=== PATIENT | female | born 1995 | race Caucasian/White ===

== ENCOUNTER 2017-11-04 01:21 | Emergency (ER) | payer OTHER ==
[~2017-11-04] VITALS: Ht 162.6 cm; Wt 90.0 kg
[~2017-11-04 01:21] MED LIST: CLR10 PO; DEXT1LIQ80 PO
[2017-11-04] MEDS ORDERED: IBUPROFEN 600 MG TAB PO STA (01:32)
[2017-11-04] MEDS ORDERED: LIDOCAINE/EPINEPHRINE 1% 20 ML VIAL INFIL STA (01:32)
[2017-11-04] MEDS ORDERED: CEPHALEXIN MONOHYDRATE 250 MG CAP PO STA (01:32)
[2017-11-04] MEDS ORDERED: SULFAMETHOXAZOLE/TRIMETHOPRIM DS 800/160MG TAB PO STA (01:32)
[2017-11-04] MEDS ORDERED: SEPTRA DS HOME PACK 1 EA VIAL PO STA (01:32)
[2017-11-04] MEDS ORDERED: PERCOCET HOME PACK PO STA (01:32)
[2017-11-04 01:34] VITALS: TEMP 37.2; Ht 162.6 cm; Wt 90.0 kg
[2017-11-04] MEDS ORDERED: OXYCODONE/ACETAMINOPHEN 5-325 TAB PO ONE (01:45)
[2017-11-04] MEDS ORDERED: CEPHALEXIN 500MG HOME PACK 1 EA BTL PO ONE (01:45)
[2017-11-04] MEDS ORDERED: CEPH500C PO (02:22)
[2017-11-04] MEDS ORDERED: SULF800T23 PO (02:22)
[2017-11-04] MEDS ORDERED: OXYC-57 PO (02:22)
[2017-11-04 02:45] VITALS: BP 112/94; PULSE 98; O2SAT 96
--- NOTE | 2017-11-04 02:50 | EMERGENCY ROOM VISIT NOTE ---
History Report prepared by [place]: Janee Dang Under the Supervision of: Dr. Kiel Browne M.D. First contact with patient: 01:28 Chief Complaint: OTHER COMPLAINT Stated Complaint: REDNESS, BUMP THAT IS TENDER History of Present Illness The patient is a 22 year old female who presents to the Emergency Room with complaints of an episode of a bump on her right breast starting a few days ago. The patient states that it is very sore. She currently rates her pain as a 10/ 10 in severity. She complains that it is red and warm. The patient denies spending time in the hamm, having dogs, breast feeding, and noticing a tick. Source of History: patient Onset: a few days ago Position: other (right breast) Symptom Intensity: 10/10 Quality: other (sore) Timing: other (episode) Note: The patient complains of it being warm and red. The patient denies spending time in the hamm, having dogs, breast feeding, and noticing a tick. Review of Systems See HPI for pertinent positives & negatives. A total of 10 systems reviewed and were otherwise negative. Past Medical & Surgical Medical Problems: (1) Bladder infection (2) Panic disorder (3) Skin problems Surgical Problems: (1) History of tonsilloadenoidectomy Family History No pertinent family history Social History Smoking Status: Never Smoker Alcohol Use: none Marital Status: single Housing Status: lives with family Occupation Status: student Current/Historical Medications Scheduled Cephalexin Monohydrate (Keflex), 1 CAP PO QID Loratadine (Claritin), 10 MG PO DAILY Sulfa/Trimethoprim (Bactrim Ds 800MG/160MG), 1 TAB PO BID Scheduled PRN Dextromethorphan Polistirex (Cough Dm), 2 TSP PO BID PRN for Cough Oxycodone/Acetaminophen 5MG/325MG (Percocet 5MG/325MG), 1-2 TAB PO Q4H PRN for Pain Allergies Coded Allergies: No Known Allergies (Unverified , 10/03/15) Physical Exam Vital Signs Date Time Temp Pulse Resp B/P (MAP) Pulse Ox O2 Delivery O2 Flow Rate FiO2 11/04/17 02:45 98 18 112/94 96 11/04/17 01:34 37.2 98 18 115/86 98 Room Air Physical Exam GENERAL: Awake, alert, well-appearing, in no acute distress HENT: Normocephalic, atraumatic. Oropharynx unremarkable. EYES: Normal conjunctiva. Sclera non-icteric. NECK: Supple. No nuchal rigidity. FROM. No JVD. RESPIRATORY: Clear to auscultation. CARDIAC: Regular rate, normal rhythm. Extremities warm and well perfused. Pulses equal. ABDOMEN: Soft, non-distended. No tenderness to palpation. No rebound or guarding. No masses. RECTAL: Deferred. MUSCULOSKELETAL: Chest examination reveals no tenderness. The back is symmetrical on inspection without obvious abnormality. There is no CVA tenderness to palpation. No joint edema. LOWER EXTREMITIES: Calves are equal size bilaterally and non-tender. No edema. No discoloration. NEURO: Normal sensorium. No sensory or motor deficits noted. SKIN: No rash or jaundice noted. Quarter sized area of fluctuance to her right breast area. Medical Decision & Procedures Medications Administered Medications (Trade) Dose Ordered Sig/Alivia Route Start Time Stop Time Status Last Admin Dose Admin Lidocaine/ Epinephrine (Xylocaine/Epine 1% Inj) 20 ml ONE STAT INFIL 11/04/17 01:32 11/04/17 01:35 DC 11/04/17 01:56 20 ML Oxycodone/ Acetaminophen (Percocet 5-325mg Tab) 2 tab NOW ONCE PO 11/04/17 01:45 11/04/17 01:46 DC 11/04/17 01:59 2 TAB Ibuprofen (Motrin Tab) 600 mg NOW STAT PO 11/04/17 01:32 11/04/17 01:35 DC 11/04/17 01:57 600 MG Cephalexin Monohydrate (Keflex Cap) 500 mg NOW STAT PO 11/04/17 01:32 11/04/17 01:36 DC 11/04/17 01:57 500 MG Trimethoprim/ Sulfamethoxazole (Sulfameth/ Trimeth Ds 800/ 160MG Home Pack) 1 homepack UD STAT PO 11/04/17 01:32 11/04/17 01:36 DC 11/04/17 02:39 1 HOMEPACK Trimethoprim/ Sulfamethoxazole (Septra Ds 800/ 160MG Tab) 1 tab NOW STAT PO 11/04/17 01:32 11/04/17 01:36 DC 11/04/17 01:59 1 TAB Cephalexin Monohydrate (Keflex 500MG Home Pack) 1 homepack NOW ONCE PO 11/04/17 01:45 11/04/17 01:46 DC 11/04/17 02:39 1 HOMEPACK Oxycodone/ Acetaminophen (Percocet 5/ 325MG Home Pack) 1 homepack UD STAT PO 11/04/17 01:32 11/04/17 01:36 DC 11/04/17 02:39 1 HOMEPACK Procedure Incision & Drainage Indication: Abscess. Location: Right sternal area Verbal consent was obtained after the risks and benefits were explained, including but not limited to bleeding, scarring, infection, pain, and bone/joint /nerve damage. At this time, the risks of the procedure are less than the risks of NOT performing the procedure. A time out was taken and the correct patient and site identified. The skin was prepped with betadine and a sterile field set. The wound was anesthetized with 2 ml of 1% lidocaine without epinephrine. The abscess cavity was entered with a number 11 blade and puss material expressed. Detailed wound care instructions and signs and symptoms of worsening infection reviewed with the patient. No complications and the patient tolerated the procedure well. ED Course 0130: Past medical records reviewed. The patient was evaluated in room A2. A complete history and physical examination was performed. 0132: Ordered Oxycodone/Acetaminophen 1 homepack PO, Trimethoprim/ Sulfamethoxazole 1 tab PO, Trimethoprim/Sulfamethoxazole 1 homepack PO, Keflex Cap 500 mg PO, Motrin Tab 600 mg PO, Lidocaine/Epinephrine 20 ml INFIL. 0145: Ordered Cephalexin Monohydrate 1 homepack PO, Oxycodone/Acetaminophen 2 tab PO. 0209: I reevaluated the patient and drained her abscess at this time. I discussed results and treatment plan with the patient. She verbalizes agreement and understanding. The patient is ready for discharge. Medical Decision This is a 22-year-old female who presents the emergency department complaining of abscess near the margin of her right breast. This area was anesthetized and using a needle aspiration a large amount of pus was expressed. Patient was started on antibiotics including Keflex and Bactrim pending culture results. I do feel the patient is well enough to be discharged home for follow-up with a primary care physician. Patient was in agreement with the treatment plan. Medication Reconcilliation Current Medication List: was personally reviewed by me Blood Pressure Screening Patient's blood pressure: Normal blood pressure Blood pressure disposition: Did not require urgent referral Impression Primary Impression: Abscess Scribe Attestation The scribe's documentation has been prepared under my direction and personally reviewed by me in its entirety. I confirm that the note above accurately reflects all work, treatment, procedures, and medical decision making performed by me. Departure Information Dispostion Home / Self-Care Prescriptions Oxycodone/Acetaminophen 5MG/325MG (PERCOCET 5MG/325MG) Tab 1-2 TAB PO Q4H Y for Pain, #14 TAB Prov: Kiel Browne MD 11/04/17 Sulfa/Trimethoprim (Bactrim Ds 800MG/160MG) Tab 1 TAB PO BID for 10 Days, #20 TAB Prov: Kiel Browne MD 11/04/17 Cephalexin Monohydrate (Keflex) 500 Mg Cap 1 CAP PO QID for 10 Days, #40 CAP Prov: Kiel Browne MD 11/04/17 Referrals Medhat Smith M.D. (PCP) Forms HOME CARE DOCUMENTATION FORM, IMPORTANT VISIT INFORMATION, WORK / SCHOOL INSTRUCTIONS Patient Instructions My [facility] Additional Instructions You received narcotic or benzodiazepene medication while in the emergency room today. This is an addictive medication that may cause drowziness as well as constipation. Do not drive, operate heavy machinery, or drink alcohol under the influence of this medication. Take 600 mg Ibuprofen every 6 hours Take Percocet for breakthrough pain You have been examined and treated today on an emergency basis only. This is not a substitute for, or an effort to provide, complete comprehensive medical care. It is impossible to recognize and treat all injuries or illnesses in a single emergency department visit. It is therefore important that you follow up closely with Dr Smith. Call as soon as possible for an appointment. Thank you for your time and consideration. I look forward to speaking with you again soon. Please don't hesitate to call us if you have any questions.
== END 2017-11-04 02:45 | disposition home or self-care (01) ==
LOC: C.EDA 01:22
DX: N61.1 Abscess of the breast and nipple (principal)

== ENCOUNTER 2020-05-27 04:15 | Inpatient (IN) ==
[2020-05-27] MEDS ORDERED: LORazepam 2 MG/ML VIAL (IM USE) ONE (04:22)
[2020-05-27] MEDS ORDERED: LORazepam 1 ML IM STA (04:22)
[2020-05-27] MEDS ORDERED: LORazepam 2 MG/ML VIAL (IM USE) IM STA (04:29)
[2020-05-27] MEDS ORDERED: SODIUM CHLORIDE 0.9% 1000ML 1,000 ML IV SCH (04:30)
[2020-05-27] MEDS: LORazepam 2 MG/4 ML VIAL IV PRN ×6 (04:53→13:37)
[2020-05-27 05:00] LABS: Appearance Urine Cloudy (Clear); Bacteria Urine Automated 3+ (Negative); Bilirubin Urine Negative (Negative); Blood Urine 2+ (Negative); Color Urine Yellow; Epithelial Cell Urine Auto >30 /lpf (0-5); Glucose Urine UA Negative (Negative); Ketones Urine Negative (Negative); Leukocyte Esterase Urine 1+ (Negative); Nitrite Urine Positive (Negative); Protein Urine Negative (Negative); RBC Urine Automated 0-4 /hpf (0-4); Specific Gravity Urine 1.015 (1.000-1.030); Urobilinogen Urine Negative (Negative)
[2020-05-27 05:10] LABS: Pregnancy Test, Urine Negative (Negative)
[2020-05-27 05:20] LABS: Basophils # (auto) 0.03 K/uL (0-0.2); Basophils % (auto) 0.2 %; Eosinophils % (auto) 0.7 %; Hematocrit (blood only) 46.1 % (37-47); Hemoglobin 15.9 g/dL (12.0-16.0); Immature Granulocytes # (auto) 0.03 K/uL (0.00-0.02); Immature Granulocytes % (auto) 0.2 %; Lymphocytes # (auto) 1.82 K/uL (1.2-3.4); Lymphocytes % (auto) 11.9 %; Mean Corpuscular Hgb Conc 34.5 g/dL (32-36); Mean Corpuscular Volume 89.9 fL (80-100); Mean Platelet Volume 9.6 fL (7.4-10.4); Monocytes # (auto) 0.66 K/uL (0.11-0.59); Monocytes % (auto) 4.3 %; Neutrophils # (auto) 12.69 K/uL (1.4-6.5); Neutrophils % (auto) 82.7 %; Platelet Count 256 K/uL (130-400); RDW Coefficient of Variation 12.9 % (11.5-14.5); RDW Standard Deviation 42.3 fL (36.4-46.3); Red Blood Count 5.13 M/uL (4.2-5.4); White Blood Count 15.33 K/uL (4.8-10.8)
[2020-05-27 05:30] LABS: Amphetamines+Metham, Urine Neg (Neg); Barbiturates, Urine Neg (Neg); Benzodiazepine, Urine Neg (Neg); Cocaine, Urine Neg (Neg); MDMA (Ecstacy), Urine Neg (Neg); Methadone, Urine Neg (Neg); Opiate, Urine Neg (Neg); Phencyclidine, Urine Neg (Neg)
[2020-05-27 05:52] LABS: Alanine Aminotransferase 18 U/L (12-78); Albumin Level 3.8 gm/dl (3.4-5.0); Aspartate Aminotransferase 12 U/L (15-37); BUN Creatinine Ratio 14.1 (10-20); Blood Urea Nitrogen 16 mg/dl (7-18); Calcium 8.4 mg/dl (8.5-10.1); Carbon Dioxide 21 mmol/L (21-32); Chloride 110 mmol/L (98-107); Creatinine Clr Calc Pharmacy 90.1 ml/min; Est GFR (African American) 80.2; Est GFR (Non-African American) 69.2; Glucose 86 mg/dl (70-99); Potassium 3.1 mmol/L (3.5-5.1); Sodium 139 mmol/L (136-145)
[2020-05-27 05:57] LABS: Alkaline Phosphatase 72 U/L (45-117); Bilirubin,Total 0.3 mg/dl (0.2-1); Creatine Kinase 163 U/L (26-192); Globulin 3.8 gm/dl (2.5-4.0); Total Protein 7.6 gm/dl (6.4-8.2); Troponin I < 0.015 ng/ml (0-0.045)
--- NOTE | 2020-05-27 06:10 | Emergency Department Note ---
History of Present Illness General Chief complaint: Overdose (Accidental) Stated complaint: OVERDOSE Time Seen by Provider: 05/27/20 04:18 History of Present Illness Maximum Pain Intensity: 0 This is a 24-year-old female presenting to the emergency department via EMS for evaluation of methamphetamine overdose. The patient was evidently smoking methamphetamines tonight, and became very atypical. She lives at home with her parents, who called 911. Police and EMS did arrive on scene. They did find a methamphetamine pipe in the patient's bedroom, as well as a small knife on the patient's person. The patient was acting atypical and brought to the ER for evaluation. On presentation the patient is minimally redirectable. She is trying to get out of the bed and does not answer all questions appropriately. Review of the EMR shows the patient has had overdose events in the past. Much of the history is provided by EMS and police. Home Medications Home Medications Medication Instructions Recorded Confirmed Type albuterol sulfate [Ventolin HFA] 2 puff INHALATION QID PRN 05/27/20 05/27/20 History diclofenac sodium 50 mg PO BID PRN 05/27/20 05/27/20 History hydroxyzine pamoate 25 - 50 mg PO HS PRN 05/27/20 05/27/20 History mometasone-formoterol [Dulera] 2 puff INHALATION BID 05/27/20 05/27/20 History montelukast [Singulair] 10 mg PO HS 05/27/20 05/27/20 History Allergies Allergy/AdvReac Type Severity Reaction Status Date / Time cat dander Allergy Intermediate HIVES-SWELLING Verified 09/09/19 17:17 ITCHY WATERY EYES grass pollen Allergy Intermediate HIVES--SWELLING Verified 09/09/19 17:17 ITCHY WATERY EYES pollen extracts Allergy Intermediate HIVES--SWELLING Verified 09/09/19 17:17 ITCHY WATERY EYES. Past Med/Surg History Medical History Asthma Insomnia Marijuana use No acute medical problems ANDREY (obstructive sleep apnea) Surgical History History of tonsillectomy and adenoidectomy Family History Other Family history non-contributory Social History (Updated 05/27/20 @ 18:01 by Sumaya Phelps PA-C) Smoking Status: Current every day smoker Cigarettes Per Day: 5; Second Hand Exposure: No; Do You Dip or Chew Tobacco: No; Tobacco Cessation Education Requested by Patient: No Hx Alcohol Use: No Hx Substance Use: Yes Last Used Substance: Unknown Substance Use Type Other:: pipe found Preferred Language: Luxembourgish Communication Ability: Impaired Communication Ability Comment: altered mental status Director External Communications Required: No Beliefs That Will Affect Care: None marital status: Single Current Living Situation: Parent Other Information That Helps Us Care for You: No Feels Safe at Home: Yes Safety Concerns: Feels Safe At This Time Assistive Devices: None Review of Systems Unobtainable due to cognitive status Physical Exam Vital Signs Vital Signs - 24 hr 05/27/20 04:27 05/27/20 04:33 05/27/20 05:11 Temperature 36.8 C Temperature Source Oral Pulse Rate 154 H Pulse Rate [Right Finger] 141 H Pulse Rate from SpO2 Sensor Respiratory Rate 18 16 Respiratory Effort / Characteristics Respiratory Depth Normal Normal Respiratory Pattern Blood Pressure 144/99 H Blood Pressure [Right Arm] 160/104 H Blood Pressure Mean 114 Blood Pressure Mean [Right Arm] 122 Blood Pressure Position Lying Blood Pressure Position [Right Arm] Lying Pulse Oximetry 98 98 98 Oxygen Delivery Method Room Air Room Air Room Air Sepsis Recent Fever Within 48 Hours No Sepsis New/Unexplained Change in Mental Status No Sepsis Action Taken by Nursing No Action Required 05/27/20 06:37 05/27/20 08:00 05/27/20 09:02 Temperature Temperature Source Pulse Rate Pulse Rate [Right Finger] 137 H 126 H 116 H Pulse Rate from SpO2 Sensor Respiratory Rate 16 20 20 Respiratory Effort / Characteristics Non-Labored Spontaneous Respiratory Depth Normal Normal Respiratory Pattern Regular Blood Pressure Blood Pressure [Right Arm] 131/68 133/94 125/104 H Blood Pressure Mean Blood Pressure Mean [Right Arm] 89 107 111 Blood Pressure Position Blood Pressure Position [Right Arm] Lying Pulse Oximetry 98 99 99 Oxygen Delivery Method Room Air Room Air Room Air Sepsis Recent Fever Within 48 Hours Sepsis New/Unexplained Change in Mental Status Sepsis Action Taken by Nursing 05/27/20 10:01 05/27/20 12:01 05/27/20 12:04 Temperature Temperature Source Pulse Rate 112 H Pulse Rate [Right Finger] 118 H 110 H Pulse Rate from SpO2 Sensor 111 H Respiratory Rate 20 23 20 Respiratory Effort / Characteristics Non-Labored Non-Labored Spontaneous Respiratory Depth Normal Respiratory Pattern Regular Blood Pressure 124/111 H Blood Pressure [Right Arm] 131/82 124/111 H Blood Pressure Mean 116 Blood Pressure Mean [Right Arm] 98 115 Blood Pressure Position Blood Pressure Position [Right Arm] Pulse Oximetry 96 95 Oxygen Delivery Method Room Air Sepsis Recent Fever Within 48 Hours Sepsis New/Unexplained Change in Mental Status Sepsis Action Taken by Nursing 05/27/20 12:15 05/27/20 12:30 05/27/20 12:45 Temperature Temperature Source Pulse Rate Pulse Rate [Right Finger] Pulse Rate from SpO2 Sensor 128 H 123 H 115 H Respiratory Rate Respiratory Effort / Characteristics Respiratory Depth Respiratory Pattern Blood Pressure 125/100 140/80 Blood Pressure [Right Arm] Blood Pressure Mean 108 88 Blood Pressure Mean [Right Arm] Blood Pressure Position Blood Pressure Position [Right Arm] Pulse Oximetry 99 98 96 Oxygen Delivery Method Sepsis Recent Fever Within 48 Hours Sepsis New/Unexplained Change in Mental Status Sepsis Action Taken by Nursing 05/27/20 13:01 05/27/20 13:15 05/27/20 13:31 Temperature Temperature Source Pulse Rate Pulse Rate [Right Finger] Pulse Rate from SpO2 Sensor 111 H 113 H 120 H Respiratory Rate 24 22 22 Respiratory Effort / Characteristics Respiratory Depth Respiratory Pattern Blood Pressure 114/80 135/96 Blood Pressure [Right Arm] Blood Pressure Mean 109 112 Blood Pressure Mean [Right Arm] Blood Pressure Position Blood Pressure Position [Right Arm] Pulse Oximetry 97 98 97 Oxygen Delivery Method Sepsis Recent Fever Within 48 Hours Sepsis New/Unexplained Change in Mental Status Sepsis Action Taken by Nursing 05/27/20 14:00 05/27/20 14:02 05/27/20 14:10 Temperature Temperature Source Pulse Rate 106 H 108 H 104 H Pulse Rate [Right Finger] 106 H Pulse Rate from SpO2 Sensor 103 H 106 H 106 H Respiratory Rate 18 18 27 H Respiratory Effort / Characteristics Non-Labored Spontaneous Respiratory Depth Normal Respiratory Pattern Regular Blood Pressure 155/96 H Blood Pressure [Right Arm] 155/96 H Blood Pressure Mean 112 Blood Pressure Mean [Right Arm] 115 Blood Pressure Position Blood Pressure Position [Right Arm] Pulse Oximetry 95 97 97 Oxygen Delivery Method Room Air Sepsis Recent Fever Within 48 Hours Sepsis New/Unexplained Change in Mental Status Sepsis Action Taken by Nursing 05/27/20 14:20 05/27/20 14:30 05/27/20 14:40 Temperature Temperature Source Pulse Rate 112 H 111 H 104 H Pulse Rate [Right Finger] Pulse Rate from SpO2 Sensor 115 H 113 H 106 H Respiratory Rate 16 22 41 H Respiratory Effort / Characteristics Respiratory Depth Respiratory Pattern Blood Pressure 146/92 H Blood Pressure [Right Arm] Blood Pressure Mean 115 Blood Pressure Mean [Right Arm] Blood Pressure Position Blood Pressure Position [Right Arm] Pulse Oximetry 98 95 95 Oxygen Delivery Method Sepsis Recent Fever Within 48 Hours Sepsis New/Unexplained Change in Mental Status Sepsis Action Taken by Nursing 05/27/20 14:50 05/27/20 15:00 05/27/20 15:01 Temperature Temperature Source Pulse Rate 94 H 95 H 105 H Pulse Rate [Right Finger] Pulse Rate from SpO2 Sensor 93 H 99 H 106 H Respiratory Rate 21 26 H 36 H Respiratory Effort / Characteristics Respiratory Depth Respiratory Pattern Blood Pressure 153/146 H Blood Pressure [Right Arm] Blood Pressure Mean 148 Blood Pressure Mean [Right Arm] Blood Pressure Position Blood Pressure Position [Right Arm] Pulse Oximetry 95 97 96 Oxygen Delivery Method Sepsis Recent Fever Within 48 Hours Sepsis New/Unexplained Change in Mental Status Sepsis Action Taken by Nursing 05/27/20 15:10 05/27/20 15:30 05/27/20 16:11 Temperature Temperature Source Pulse Rate 112 H 97 H 119 H Pulse Rate [Right Finger] Pulse Rate from SpO2 Sensor 111 H 109 H 119 H Respiratory Rate 25 H 36 H 26 H Respiratory Effort / Characteristics Respiratory Depth Respiratory Pattern Blood Pressure 136/95 Blood Pressure [Right Arm] Blood Pressure Mean 114 Blood Pressure Mean [Right Arm] Blood Pressure Position Blood Pressure Position [Right Arm] Pulse Oximetry 96 98 Oxygen Delivery Method Sepsis Recent Fever Within 48 Hours Sepsis New/Unexplained Change in Mental Status Sepsis Action Taken by Nursing 05/27/20 17:05 05/27/20 17:30 Temperature Temperature Source Pulse Rate 122 H 113 H Pulse Rate [Right Finger] Pulse Rate from SpO2 Sensor 121 H 114 H Respiratory Rate 28 H 17 Respiratory Effort / Characteristics Respiratory Depth Respiratory Pattern Blood Pressure 162/91 H 155/99 H Blood Pressure [Right Arm] Blood Pressure Mean 105 122 Blood Pressure Mean [Right Arm] Blood Pressure Position Blood Pressure Position [Right Arm] Pulse Oximetry 94 97 Oxygen Delivery Method Sepsis Recent Fever Within 48 Hours Sepsis New/Unexplained Change in Mental Status Sepsis Action Taken by Nursing VITALS: Vitals are noted on the nurse's note and reviewed by myself. Vital signs with notable tachycardia GENERAL: White female who does appear clinically altered. She will intermittently respond to questions with inappropriate answers. She is responding to internal stimuli. HEAD: Normocephalic atraumatic. EYES: Pupils equal round and reactive to light and accommodation. Conjunctivae without injection, sclerae without icterus. Extraocular movements intact. NOSE: Patent, turbinates without inflammation or discharge. MOUTH: Mucous membranes moist. Tonsils are not enlarged. Pharynx without erythema, blood, or exudate. Uvula midline. Airway patent. NECK: Supple without nuchal rigidity. No lymphadenopathy. No thyromegaly. Cervical spine is nontender. HEART: Tachycardic rate with regular rhythm LUNGS: Clear to auscultation bilaterally without wheezes, rales or rhonchi. No retractions or accessory muscle use. ABDOMEN: Positive normal bowel sounds x 4. Soft, nontender, without masses or organomegaly. MUSCULOSKELETAL: No muscle atrophy, erythema, or edema noted. Full range of motion in all extremities. NEURO: Patient was alert and oriented to person. CN II through XII grossly intact. Course Administered Medications Lorazepam (Ativan) 0.5 mg in 1 mls @ 0.5 mls/min IV Q6H PRN PRN Reason: Agitation Stop: 06/26/20 19:28 Last Admin: 05/27/20 20:33 Dose: 0.5 mls/min Documented by: [id number] Dextrose/Lactated Ringer's (D5w And Lactated Ringers) 1,000 mls @ 150 mls/hr IV .[id number] MARIBELL Stop: 06/27/20 01:29 Last Admin: 05/28/20 01:43 Dose: 150 mls/hr Documented by: [id number] Cefepime HCl 2,000 mg/ Syringe 20 mls @ 5 mls/min IV Q12H MARIBELL Stop: 06/07/20 00:00 Last Admin: 05/27/20 23:56 Dose: 5 mls/min Documented by: [id number] Discontinued Medications Lorazepam (Ativan) 1 mls @ 0.0033 mls/min IM NOW STA Stop: 05/27/20 09:25 Last Admin: 05/27/20 04:30 Dose: Not Given Documented by: [id number] Sodium Chloride (Nss 1000ml) 1,000 mls @ 999 mls/hr IV .Q1H1M MARIBELL Stop: 05/27/20 05:30 Last Infusion: 05/27/20 08:25 Dose: 0 mls/hr Documented by: [id number] Admin: 05/27/20 06:37 Dose: 999 mls/hr Documented by: [id number] Lorazepam (Ativan) 2 mg in 4 mls @ 4 mls/min IV Q15M PRN PRN Reason: agitation Stop: 06/26/20 04:22 Last Admin: 05/27/20 13:37 Dose: 4 mls/min Documented by: [id number] Admin: 05/27/20 10:12 Dose: 4 mls/min Documented by: [id number] Admin: 05/27/20 09:46 Dose: 4 mls/min Documented by: [id number] Admin: 05/27/20 07:28 Dose: 4 mls/min Documented by: [id number] Admin: 05/27/20 05:07 Dose: 4 mls/min Documented by: [id number] Admin: 05/27/20 04:53 Dose: 4 mls/min Documented by: [id number] Sodium Chloride (Nss) 500 mls @ 125 mls/hr IV .Q4H MARIBELL Stop: 06/26/20 16:14 Last Infusion: 05/27/20 20:45 Dose: 0 mls/hr Documented by: [id number] Admin: 05/27/20 16:45 Dose: 125 mls/hr Documented by: [id number] Potassium Chloride (K Tito / Wtr) 10 meq in 100 mls @ 100 mls/hr IV ONE ONE Stop: 05/27/20 17:15 Last Infusion: 05/27/20 18:26 Dose: 0 mls/hr Documented by: [id number] Admin: 05/27/20 17:11 Dose: 100 mls/hr Documented by: [id number] Ceftriaxone Sodium (Rocephin) 2,000 mg in 70 mls @ 140 mls/hr IV NOW STA Stop: 05/27/20 17:41 Last Infusion: 05/27/20 18:27 Dose: 0 mls/hr Documented by: [id number] Admin: 05/27/20 18:07 Dose: 140 mls/hr Documented by: [id number] Multivitamins 10 ml/ Thiamine HCl 100 mg/ Folic Acid 1 mg/Sodium Chloride 1,011.2 mls @ 1,011.2 mls/hr IV .Q1H ONE Stop: 05/27/20 19:28 Last Infusion: 05/27/20 21:24 Dose: 0 mls/hr Documented by: [id number] Admin: 05/27/20 19:30 Dose: 1,011.2 mls/hr Documented by: [id number] Potassium Chloride 40 meq/ (Sodium Chloride) 1,020 mls @ 80 mls/hr IV .[id number] MARIBELL Stop: 05/28/20 08:13 Last Admin: 05/27/20 23:22 Dose: Not Given Documented by: [id number] Dextrose/Sodium Chloride (D5w And 1/2nss) 1,000 mls @ 80 mls/hr IV .[id number] MARIBELL Stop: 05/28/20 08:14 Last Infusion: 05/27/20 23:23 Dose: 0 mls/hr Documented by: [id number] Admin: 05/27/20 20:59 Dose: 80 mls/hr Documented by: [id number] Lorazepam (Ativan) 1 mg in 2 mls @ 2 mls/min IV NOW STA Stop: 05/27/20 22:24 Last Admin: 05/27/20 22:31 Dose: 2 mls/min Documented by: [id number] Lactated Ringer's (Lr) 1,000 mls @ 500 mls/hr IV .Q2H ONE Stop: 05/28/20 01:12 Last Admin: 05/27/20 23:32 Dose: 500 mls/hr Documented by: [id number] Magnesium Sulfate/Dextrose (Magnesium Sulfate / D5w) 1 gm in 100 mls @ 50 mls/hr IV ONE ONE Stop: 05/28/20 01:14 Last Admin: 05/27/20 23:57 Dose: 50 mls/hr Documented by: [id number] Lorazepam (Lorazepam 2 Mg/Ml Vial (Im Use)) Confirm Administered Dose 2 mg .ROUTE .STK-MED ONE Stop: 05/27/20 04:23 Last Admin: 05/27/20 04:29 Dose: 2 mg Documented by: [id number] Lorazepam (Lorazepam 2 Mg/Ml Vial (Im Use)) 2 mg IM NOW STA Stop: 05/27/20 04:30 Last Admin: 10/13/20 04:34 Dose: 2 mg Documented by: [id number] Olanzapine (Olanzapine 10 Mg/2.1 Ml Sdv) 5 mg IM NOW STA Stop: 05/27/20 22:06 Last Admin: 05/27/20 22:13 Dose: 5 mg Documented by: [id number] Medical Decision Making Differential Diagnosis differential includes drug overdose, toxic ingestions, self-mutilation, suicidal ideation, suicide attempt, depression. Laboratory Data Result diagrams: 05/27/20 17:41 05/27/20 17:41 Lab Results 05/27/20 05/27/20 05/27/20 Range/Units 04:40 04:40 04:40 WBC (4.8-10.8) K/uL RBC (4.2-5.4) M/uL Hgb (12.0-16.0) g/dL Hct (37-47) % MCV (80-100) fL MCH (25-34) pg MCHC (32-36) g/dL RDW Std Deviation (36.4-46.3) fL RDW Coeff of Med (11.5-14.5) % Plt Count (130-400) K/uL MPV (7.4-10.4) fL Immature Gran % (Auto) % Neut % (Auto) % Lymph % (Auto) % Weber % (Auto) % Eos % (Auto) % Baso % (Auto) % Neut # (Auto) (1.4-6.5) K/uL Lymph # (Auto) (1.2-3.4) K/uL Weber # (Auto) (0.11-0.59) K/uL Eos # (Auto) (0-0.5) K/uL Baso # (Auto) (0-0.2) K/uL Immature Gran # (Auto) (0.00-0.02) K/uL Sodium (136-145) mmol/L Potassium (3.5-5.1) mmol/L Chloride (98-107) mmol/L Carbon Dioxide (21-32) mmol/L Anion Gap (3-11) BUN (7-18) mg/dl Creatinine (0.6-1.2) mg/dl Est Cr Clr Drug Dosing ml/min Est GFR ( Amer) Est GFR (Non-Af Amer) BUN/Creatinine Ratio (10-20) Glucose (70-99) mg/dl Calcium (8.5-10.1) mg/dl Total Bilirubin (0.2-1) mg/dl AST (15-37) U/L ALT (12-78) U/L Alkaline Phosphatase (45-117) U/L Total Creatine Kinase (26-192) U/L Troponin I (0-0.045) ng/ml Total Protein (6.4-8.2) gm/dl Albumin (3.4-5.0) gm/dl Globulin (2.5-4.0) gm/dl Albumin/Globulin Ratio (0.9-2) Urine Color Yellow Urine Appearance Cloudy A (Clear) Urine pH 5.0 (4.5-7.5) Ur Specific [place] 1.015 (1.000-1.030) Urine Protein Negative (Negative) Urine Glucose (UA) Negative (Negative) Urine Ketones Negative (Negative) Urine Blood 2+ H (Negative) Urine Nitrite Positive A (Negative) Urine Bilirubin Negative (Negative) Urine Urobilinogen Negative (Negative) Ur Leukocyte Esterase 1+ H (Negative) Urine WBC (Auto) 10-30 H (0-5) /hpf Urine RBC (Auto) 0-4 (0-4) /hpf U Hyaline Cast (Auto) 1-5 (0-5) /lpf U Epithel Cells (Auto) >30 H (0-5) /lpf Urine Bacteria (Auto) 3+ H (Negative) Urine Test Negative (Negative) Urine Opiates Screen Neg (Neg) Ur Methadone, Qual Neg (Neg) Urine Barbiturates Neg (Neg) Ur Phencyclidine (PCP) Neg (Neg) U Amphetamin/Meth Scrn Neg (Neg) MDMA (Ecstasy) Screen Neg (Neg) U Benzodiazepines Scrn Neg (Neg) Ur Cocaine Metabolite Neg (Neg) U Marijuana (THC) Screen Neg (Neg) Ethyl Alcohol mg/dL (0-3) mg/dl 05/27/20 05/27/20 05/27/20 Range/Units 04:46 04:46 04:46 WBC 15.33 H (4.8-10.8) K/uL RBC 5.13 (4.2-5.4) M/uL Hgb 15.9 (12.0-16.0) g/dL Hct 46.1 (37-47) % MCV 89.9 (80-100) fL MCH 31.0 (25-34) pg MCHC 34.5 (32-36) g/dL RDW Std Deviation 42.3 (36.4-46.3) fL RDW Coeff of Med 12.9 (11.5-14.5) % Plt Count 256 (130-400) K/uL MPV 9.6 (7.4-10.4) fL Immature Gran % (Auto) 0.2 % Neut % (Auto) 82.7 % Lymph % (Auto) 11.9 % Weber % (Auto) 4.3 % Eos % (Auto) 0.7 % Baso % (Auto) 0.2 % Neut # (Auto) 12.69 H (1.4-6.5) K/uL Lymph # (Auto) 1.82 (1.2-3.4) K/uL Weber # (Auto) 0.66 H (0.11-0.59) K/uL Eos # (Auto) 0.10 (0-0.5) K/uL Baso # (Auto) 0.03 (0-0.2) K/uL Immature Gran # (Auto) 0.03 H (0.00-0.02) K/uL Sodium 139 (136-145) mmol/L Potassium 3.1 L (3.5-5.1) mmol/L Chloride 110 H (98-107) mmol/L Carbon Dioxide 21 (21-32) mmol/L Anion Gap 8.0 (3-11) BUN 16 (7-18) mg/dl Creatinine 1.12 (0.6-1.2) mg/dl Est Cr Clr Drug Dosing 90.1 ml/min Est GFR ( Amer) 80.2 Est GFR (Non-Af Amer) 69.2 BUN/Creatinine Ratio 14.1 (10-20) Glucose 86 (70-99) mg/dl Calcium 8.4 L (8.5-10.1) mg/dl Total Bilirubin 0.3 (0.2-1) mg/dl AST 12 L (15-37) U/L ALT 18 (12-78) U/L Alkaline Phosphatase 72 (45-117) U/L Total Creatine Kinase 163 (26-192) U/L Troponin I < 0.015 (0-0.045) ng/ml Total Protein 7.6 (6.4-8.2) gm/dl Albumin 3.8 (3.4-5.0) gm/dl Globulin 3.8 (2.5-4.0) gm/dl Albumin/Globulin Ratio 1.0 (0.9-2) Urine Color Urine Appearance (Clear) Urine pH (4.5-7.5) Ur Specific [place] (1.000-1.030) Urine Protein (Negative) Urine Glucose (UA) (Negative) Urine Ketones (Negative) Urine Blood (Negative) Urine Nitrite (Negative) Urine Bilirubin (Negative) Urine Urobilinogen (Negative) Ur Leukocyte Esterase (Negative) Urine WBC (Auto) (0-5) /hpf Urine RBC (Auto) (0-4) /hpf U Hyaline Cast (Auto) (0-5) /lpf U Epithel Cells (Auto) (0-5) /lpf Urine Bacteria (Auto) (Negative) Urine Test (Negative) Urine Opiates Screen (Neg) Ur Methadone, Qual (Neg) Urine Barbiturates (Neg) Ur Phencyclidine (PCP) (Neg) U Amphetamin/Meth Scrn (Neg) MDMA (Ecstasy) Screen (Neg) U Benzodiazepines Scrn (Neg) Ur Cocaine Metabolite (Neg) U Marijuana (THC) Screen (Neg) Ethyl Alcohol mg/dL < 3.0 (0-3) mg/dl ECG Data Attestation: I personally reviewed and interpreted this ECG as follows: Indication: + altered mental status Additional Comments: Sinus tachycardia at [address] abnormality No acute ST elevation. When compared with ECG of 08-JUN-2019 01:50, No significant change was found MDM Narrative Physical exam and history were performed. Nursing notes, EMR, and Medication List were personally reviewed. Patient appears to have overdosed on methamphetamines today. On examination the patient does appear under the influence of drugs. The patient was initially given 4 mg IM Ativan for comfort, and this did de-escalate her to where we were able to establish an IV. IV access allowed for blood work. The patient was hydrated with normal saline. We did give her additional 4 mg IV Ativan. The case was discussed with my attending, who remained involved in care and decision-making. An order was placed for continuous cardiac monitoring. The monitor shows a rate of 102 bpm with sinus tachycardia rhythm. The patient's blood work is as above and was reviewed. She does have an elevated white blood cell count of 15,000. She does not have a significant anemia or gross electrolyte and balance. Lipase and transaminases are not diagnostic. Troponin x1 is negative. CK is normal. Urine is quite contaminated. Drug abuse screen is negative. Alcohol is negative. On reevaluation the patient was able to rest comfortably in her ER bed. Initially her heart rate was persistently in the 150s, but did decrease to the low 100s when she fell asleep. At this time the patient was placed into an observation status. Observation note: Indication: Altered mental status from drug use Family/Medical/Social History as above. Patient was first seen at 04:27 for her above symptoms. In order to prevent unnecessary admission, observation was required to determine any additional medical needs and confirm a return to normal mental status. Mental health evaluation may also be required. Observation time began at 05:11. The patient remained in stable condition until the time of shift change. The case was discussed with my colleague, Mahi Geiger PA-C, who will assume care at this time. Please see Ms. Geiger's dictation for further patient course, plan, disposition. The chart was completed utilizing [employer] Speech Voice Recognition Software. Grammatical errors, random word insertions, pronoun errors, and incomplete sentences are an occasional consequence of this system due to software limitations, ambient noise, and hardware issues. Any formal questions or concerns about the content, text, or information contained within the body of this dictation should be directly addressed to the provider for clarification. . Impression & Plan Drug overdose, Altered behavior Discharge Plan Visit Data Chief Complaint: Overdose (Accidental) Stated Complaint: OVERDOSE ED Provider: Richard Turner ED Midlevel Provider: Brittany Wing Discharge Problem: Drug overdose, Altered behavior Patient Disposition: Admitted As Inpatient Discharge Instructions Interventions: ED Discharge Assessment Last Done: 05/27/20 18:37 Discharge Problem: Drug overdose Qualifiers: Encounter type: initial encounter Injury intent: undetermined intent Qualified Code(s): T50.904A - Poisoning by unspecified drugs, medicaments and biological substances, undetermined, initial encounter
--- NOTE | 2020-05-27 07:11 | Emergency Department Note ---
ED Visit Note Patient was first seen at 0427 by Josemanuel Sullivan PA-C and observation began at 05:11 and was necessary to monitor AMS from drug use in order to determine any additional medical needs and confirm return to normal mental status, as well as consider mental health evaluation. I did evaluate the patient several times throughout her stay and continued to have garbled speech which was incomprehensible. Patient has up for all episodes of incontinence. Her heart rate has improved from the 130s to the low 100s while resting. Her mother did arrive to the emergency department at this time and indicated that the patient came home with altered mental status and there was suspicion for methamphetamine overdose when PD found a "meth pipe" in her room. The patient mumbles something about bath salts and intent to harm herself, but again this was generally incomprehensible and when asked to clarify, the patient continued to have incomprehensible speech. Patient was started on maintenance fluids and CT imaging of the head ordered to evaluate for possible underlying etiology of the altered mental status. Patient was given a K rider. I did discuss the case with case management who did attempt to speak with the patient, but patient was incomprehensible at that time. I did notify them of the patient's comments to me, but the patient will not be able to have formal psych eval until she returns to normal mental status. The patient was signed out to Brittany Wing PA-C at shift change pending reassessment. Please see her dictation regarding ongoing management and care.
--- NOTE | 2020-05-27 14:10 | Electrocardiogram Report ---
Test Reason : Blood Pressure : / mmHG Vent. Rate : 144 BPM Atrial Rate : 144 BPM P-R Int : 000 ms QRS Dur : 078 ms QT Int : 354 ms P-R-T Axes : 000 069 042 degrees QTc Int : 548 ms Poor data quality, interpretation may be adversely affected Supraventricular tachycardia Nonspecific ST abnormality Abnormal ECG When compared with ECG of 08-JUN-2019 01:50, No significant change was found Confirmed by Andrew Ribeiro ([id number]) on 05/27/2020 2:09:33 PM Referred By: Confirmed By:Andrew Ribeiro
[2020-05-27] MEDS ORDERED: SODIUM CHLORIDE 0.9% 500 ML IV SCH (16:15)
[2020-05-27] MEDS ORDERED: POTASSIUM CHLORIDE / WTR 10 MEQ/100 ML PLCT IV ONE (16:16)
--- NOTE | 2020-05-27 16:43 | CT Scan Report ---
CT OF THE HEAD WITHOUT CONTRAST CLINICAL HISTORY: Altered mental status. COMPARISON STUDY: Head CT August 26, 2018. CT DOSE: 537.48 mGy.cm TECHNIQUE: Helical axial images of the head were obtained without IV contrast. Automated exposure con trol was utilized for the study. A dose lowering technique was utilized adhering to the principles o f ALARA. FINDINGS: No acute intracranial hemorrhage, midline shift or mass effect is present. The ventricular system is unremarkable. The basilar cisterns are patent. No extra-axial collections are present. Ther e are no findings to suggest acute dural sinus thrombosis or acute territorial infarct. No significan t calvarial abnormalities are present. Note is made of a small air-fluid level within left maxillary sinus. There are mild secretions within the right maxillary sinus. There is mild ethmoid sinus mucosa l thickening. IMPRESSION: 1. No acute intracranial findings. 2. Small air-fluid level within the left maxillary sinus. ACT 112: Negative or not required by law. Electronically signed by: Chandana Conner M.D. 05/27/2020 4:41 PM
--- NOTE | 2020-05-27 16:45 | Emergency Department Note ---
History of Present Illness General Chief complaint: Overdose (Accidental) Stated complaint: OVERDOSE Time Seen by Provider: 05/27/20 04:18 History of Present Illness Maximum Pain Intensity: 0 This patient is a 24-year-old female that presented to the emergency department via ambulance in the early childhood educator aide for evaluation of altered mental status. The patient possibly ingested drugs/methamphetamine last night. She was found not making sense by her mother, which contacted the ambulance service. She was seen by a physician certified medical assistant in the emergency department overnight. The patient was observed in the emergency department during the day. She still has garbled speech. The patient was slightly tachycardic. Blood pressure was stable. She was administered fluids. As the patient is still appears to be altered, she will continue to be observed in the emergency department. Home Medications Home Medications Medication Instructions Recorded Confirmed Type albuterol sulfate [Ventolin HFA] 2 puff INHALATION QID PRN 05/27/20 05/27/20 History diclofenac sodium 50 mg PO BID PRN 05/27/20 05/27/20 History hydroxyzine pamoate 25 - 50 mg PO HS PRN 05/27/20 05/27/20 History mometasone-formoterol [Dulera] 2 puff INHALATION BID 05/27/20 05/27/20 History montelukast [Singulair] 10 mg PO HS 05/27/20 05/27/20 History Allergies Allergy/AdvReac Type Severity Reaction Status Date / Time cat dander Allergy Intermediate HIVES-SWELLING Verified 09/09/19 17:17 ITCHY WATERY EYES grass pollen Allergy Intermediate HIVES--SWELLING Verified 09/09/19 17:17 ITCHY WATERY EYES pollen extracts Allergy Intermediate HIVES--SWELLING Verified 09/09/19 17:17 ITCHY WATERY EYES. Past Med/Surg History Medical History Asthma Insomnia Marijuana use No acute medical problems ANDREY (obstructive sleep apnea) Surgical History History of tonsillectomy and adenoidectomy Family History Other Family history non-contributory Social History (Updated 05/27/20 @ 18:01 by Sumaya Phelps PA-C) Smoking Status: Current every day smoker Cigarettes Per Day: 5; Second Hand Exposure: No; Do You Dip or Chew Tobacco: No; Tobacco Cessation Education Requested by Patient: No Hx Alcohol Use: No Hx Substance Use: Yes Last Used Substance: Unknown Substance Use Type Other:: pipe found Preferred Language: Moroccan Communication Ability: Impaired Communication Ability Comment: altered mental status Odd Bundle Worker Required: No Beliefs That Will Affect Care: None marital status: Single Current Living Situation: Parent Other Information That Helps Us Care for You: No Feels Safe at Home: Yes Safety Concerns: Feels Safe At This Time Assistive Devices: None Review of Systems unable to perform. altered Physical Exam Vital Signs Vital Signs - 24 hr 05/27/20 10:01 05/27/20 12:01 05/27/20 12:04 Pulse Rate 112 H Pulse Rate [Right Finger] 118 H 110 H Pulse Rate from SpO2 Sensor 111 H Respiratory Rate 20 23 20 Respiratory Effort / Characteristics Non-Labored Non-Labored Spontaneous Respiratory Depth Normal Respiratory Pattern Regular Blood Pressure 124/111 H Blood Pressure [Right Arm] 131/82 124/111 H Blood Pressure Mean 116 Blood Pressure Mean [Right Arm] 98 115 Pulse Oximetry 96 95 Oxygen Delivery Method Room Air 05/27/20 12:15 05/27/20 12:30 05/27/20 12:45 Pulse Rate Pulse Rate [Right Finger] Pulse Rate from SpO2 Sensor 128 H 123 H 115 H Respiratory Rate Respiratory Effort / Characteristics Respiratory Depth Respiratory Pattern Blood Pressure 125/100 140/80 Blood Pressure [Right Arm] Blood Pressure Mean 108 88 Blood Pressure Mean [Right Arm] Pulse Oximetry 99 98 96 Oxygen Delivery Method 05/27/20 13:01 05/27/20 13:15 05/27/20 13:31 Pulse Rate Pulse Rate [Right Finger] Pulse Rate from SpO2 Sensor 111 H 113 H 120 H Respiratory Rate 24 22 22 Respiratory Effort / Characteristics Respiratory Depth Respiratory Pattern Blood Pressure 114/80 135/96 Blood Pressure [Right Arm] Blood Pressure Mean 109 112 Blood Pressure Mean [Right Arm] Pulse Oximetry 97 98 97 Oxygen Delivery Method 05/27/20 14:00 05/27/20 14:02 05/27/20 14:10 Pulse Rate 106 H 108 H 104 H Pulse Rate [Right Finger] 106 H Pulse Rate from SpO2 Sensor 103 H 106 H 106 H Respiratory Rate 18 18 27 H Respiratory Effort / Characteristics Non-Labored Spontaneous Respiratory Depth Normal Respiratory Pattern Regular Blood Pressure 155/96 H Blood Pressure [Right Arm] 155/96 H Blood Pressure Mean 112 Blood Pressure Mean [Right Arm] 115 Pulse Oximetry 95 97 97 Oxygen Delivery Method Room Air 05/27/20 14:20 05/27/20 14:30 05/27/20 14:40 Pulse Rate 112 H 111 H 104 H Pulse Rate [Right Finger] Pulse Rate from SpO2 Sensor 115 H 113 H 106 H Respiratory Rate 16 22 41 H Respiratory Effort / Characteristics Respiratory Depth Respiratory Pattern Blood Pressure 146/92 H Blood Pressure [Right Arm] Blood Pressure Mean 115 Blood Pressure Mean [Right Arm] Pulse Oximetry 98 95 95 Oxygen Delivery Method 05/27/20 14:50 05/27/20 15:00 05/27/20 15:01 Pulse Rate 94 H 95 H 105 H Pulse Rate [Right Finger] Pulse Rate from SpO2 Sensor 93 H 99 H 106 H Respiratory Rate 21 26 H 36 H Respiratory Effort / Characteristics Respiratory Depth Respiratory Pattern Blood Pressure 153/146 H Blood Pressure [Right Arm] Blood Pressure Mean 148 Blood Pressure Mean [Right Arm] Pulse Oximetry 95 97 96 Oxygen Delivery Method 05/27/20 15:10 05/27/20 15:30 05/27/20 16:11 Pulse Rate 112 H 97 H 119 H Pulse Rate [Right Finger] Pulse Rate from SpO2 Sensor 111 H 109 H 119 H Respiratory Rate 25 H 36 H 26 H Respiratory Effort / Characteristics Respiratory Depth Respiratory Pattern Blood Pressure 136/95 Blood Pressure [Right Arm] Blood Pressure Mean 114 Blood Pressure Mean [Right Arm] Pulse Oximetry 96 98 Oxygen Delivery Method 05/27/20 17:05 05/27/20 17:30 Pulse Rate 122 H 113 H Pulse Rate [Right Finger] Pulse Rate from SpO2 Sensor 121 H 114 H Respiratory Rate 28 H 17 Respiratory Effort / Characteristics Respiratory Depth Respiratory Pattern Blood Pressure 162/91 H 155/99 H Blood Pressure [Right Arm] Blood Pressure Mean 105 122 Blood Pressure Mean [Right Arm] Pulse Oximetry 94 97 Oxygen Delivery Method Constitutional WD/WN, vitals as above Respiratory normal respiratory effort, lungs clear to auscultation Cardiovascular Tachycardic, no murmur noted. Gastrointestinal (Abdomen) normal bowel sounds, soft, nontender, no hepatosplenomegaly Musculoskeletal no cyanosis or clubbing, extremities motor strength 5/5 Skin no rashes, warm and dry Neurologic Responsive to verbal stimulation. Not following commands or answering questions appropriately. She is moving all of her extremities. Psychiatric altered Course Course The patient was seen and examined. She was first seen and examined by ED staff early this morning in addition to observed in the emergency department throughout the day. Unfortunately, her mental status is not clearing. For this reason, the hospitalist service was consulted. They kindly agreed to evaluate the patient for possible inpatient management. Consultations [facility] Administered Medications Folic Acid (Folic Acid 1 Mg Tab) 1 mg PO QAM MARIBELL Stop: 06/27/20 08:59 Last Admin: 05/28/20 07:45 Dose: 1 mg Documented by: [id number] Lorazepam (Ativan) 0.5 mg in 1 mls @ 0.5 mls/min IV Q6H PRN PRN Reason: Agitation Stop: 06/26/20 19:28 Last Admin: 05/28/20 03:40 Dose: 0.5 mls/min Documented by: [id number] Admin: 05/27/20 20:33 Dose: 0.5 mls/min Documented by: [id number] Dextrose/Lactated Ringer's (D5w And Lactated Ringers) 1,000 mls @ 80 mls/hr IV .[id number] MARIBELL Stop: 06/27/20 01:29 Last Infusion: 05/28/20 07:05 Dose: 80 mls/hr Documented by: [id number] Admin: 05/28/20 01:43 Dose: 150 mls/hr Documented by: [id number] Cefepime HCl 2,000 mg/ Syringe 20 mls @ 5 mls/min IV Q12H MARIBELL Stop: 06/07/20 00:00 Last Admin: 05/27/20 23:56 Dose: 5 mls/min Documented by: [id number] Thiamine HCl (Thiamine Hcl 100 Mg Tab) 100 mg PO QAM MARIBELL Stop: 06/27/20 08:59 Last Admin: 05/28/20 07:45 Dose: 100 mg Documented by: [id number] Discontinued Medications Clonidine HCl (Clonidine Hcl 0.1 Mg Tab) 0.1 mg PO NOW ONE Stop: 05/28/20 06:46 Last Admin: 05/28/20 06:54 Dose: 0.1 mg Documented by: [id number] Lorazepam (Ativan) 1 mls @ 0.0033 mls/min IM NOW STA Stop: 05/27/20 09:25 Last Admin: 05/27/20 04:30 Dose: Not Given Documented by: [id number] Sodium Chloride (Nss 1000ml) 1,000 mls @ 999 mls/hr IV .[id number] MARIBELL Stop: 05/27/20 05:30 Last Infusion: 05/27/20 08:25 Dose: 0 mls/hr Documented by: [id number] Admin: 05/27/20 06:37 Dose: 999 mls/hr Documented by: [id number] Lorazepam (Ativan) 2 mg in 4 mls @ 4 mls/min IV Q15M PRN PRN Reason: agitation Stop: 06/26/20 04:22 Last Admin: 05/27/20 13:37 Dose: 4 mls/min Documented by: [id number] Admin: 05/27/20 10:12 Dose: 4 mls/min Documented by: [id number] Admin: 05/27/20 09:46 Dose: 4 mls/min Documented by: [id number] Admin: 05/27/20 07:28 Dose: 4 mls/min Documented by: [id number] Admin: 05/27/20 05:07 Dose: 4 mls/min Documented by: [id number] Admin: 05/27/20 04:53 Dose: 4 mls/min Documented by: [id number] Sodium Chloride (Nss) 500 mls @ 125 mls/hr IV .Q4H MARIBELL Stop: 06/26/20 16:14 Last Infusion: 05/27/20 20:45 Dose: 0 mls/hr Documented by: [id number] Admin: 05/27/20 16:45 Dose: 125 mls/hr Documented by: [id number] Potassium Chloride (K Tito / Wtr) 10 meq in 100 mls @ 100 mls/hr IV ONE ONE Stop: 05/27/20 17:15 Last Infusion: 05/27/20 18:26 Dose: 0 mls/hr Documented by: [id number] Admin: 05/27/20 17:11 Dose: 100 mls/hr Documented by: [id number] Ceftriaxone Sodium (Rocephin) 2,000 mg in 70 mls @ 140 mls/hr IV NOW STA Stop: 05/27/20 17:41 Last Infusion: 05/27/20 18:27 Dose: 0 mls/hr Documented by: [id number] Admin: 05/27/20 18:07 Dose: 140 mls/hr Documented by: [id number] Multivitamins 10 ml/ Thiamine HCl 100 mg/ Folic Acid 1 mg/Sodium Chloride 1,011.2 mls @ 1,011.2 mls/hr IV .Q1H ONE Stop: 05/27/20 19:28 Last Infusion: 05/27/20 21:24 Dose: 0 mls/hr Documented by: [id number] Admin: 05/27/20 19:30 Dose: 1,011.2 mls/hr Documented by: [id number] Potassium Chloride 40 meq/ (Sodium Chloride) 1,020 mls @ 80 mls/hr IV .[id number] MARIBELL Stop: 05/28/20 08:13 Last Admin: 05/27/20 23:22 Dose: Not Given Documented by: [id number] Dextrose/Sodium Chloride (D5w And 1/2nss) 1,000 mls @ 80 mls/hr IV .[id number] MARIBELL Stop: 05/28/20 08:14 Last Infusion: 05/27/20 23:23 Dose: 0 mls/hr Documented by: [id number] Admin: 05/27/20 20:59 Dose: 80 mls/hr Documented by: [id number] Lorazepam (Ativan) 1 mg in 2 mls @ 2 mls/min IV NOW STA Stop: 05/27/20 22:24 Last Admin: 05/27/20 22:31 Dose: 2 mls/min Documented by: [id number] Lactated Ringer's (Lr) 1,000 mls @ 500 mls/hr IV .Q2H ONE Stop: 05/28/20 01:12 Last Infusion: 05/28/20 03:20 Dose: 0 mls/hr Documented by: [id number] Admin: 05/27/20 23:32 Dose: 500 mls/hr Documented by: [id number] Magnesium Sulfate/Dextrose (Magnesium Sulfate / D5w) 1 gm in 100 mls @ 50 mls/hr IV ONE ONE Stop: 05/28/20 01:14 Last Infusion: 05/28/20 01:52 Dose: 0 mls/hr Documented by: [id number] Admin: 05/27/20 23:57 Dose: 50 mls/hr Documented by: [id number] Lorazepam (Lorazepam 2 Mg/Ml Vial (Im Use)) Confirm Administered Dose 2 mg .ROUTE .STK-MED ONE Stop: 05/27/20 04:23 Last Admin: 05/27/20 04:29 Dose: 2 mg Documented by: [id number] Lorazepam (Lorazepam 2 Mg/Ml Vial (Im Use)) 2 mg IM NOW STA Stop: 05/27/20 04:30 Last Admin: 05/27/20 04:34 Dose: 2 mg Documented by: [id number] Olanzapine (Olanzapine 10 Mg/2.1 Ml Sdv) 5 mg IM NOW STA Stop: 05/27/20 22:06 Last Admin: 05/27/20 22:13 Dose: 5 mg Documented by: [id number] Medical Decision Making Medical Records Attestation: I reviewed the patient's medical records. Home Medications Current Medication List: was personally reviewed by me Laboratory Data Attestation: I reviewed the patient's lab results. Result diagrams: 05/28/20 05:31 05/28/20 05:31 Lab Results 05/27/20 05/27/20 05/27/20 Range/Units 04:40 04:40 04:40 WBC (4.8-10.8) K/uL RBC (4.2-5.4) M/uL Hgb (12.0-16.0) g/dL Hct (37-47) % MCV (80-100) fL MCH (25-34) pg MCHC (32-36) g/dL RDW Std Deviation (36.4-46.3) fL RDW Coeff of Med (11.5-14.5) % Plt Count (130-400) K/uL MPV (7.4-10.4) fL Immature Gran % (Auto) % Neut % (Auto) % Lymph % (Auto) % Hood % (Auto) % Eos % (Auto) % Baso % (Auto) % Neut # (Auto) (1.4-6.5) K/uL Lymph # (Auto) (1.2-3.4) K/uL Hood # (Auto) (0.11-0.59) K/uL Eos # (Auto) (0-0.5) K/uL Baso # (Auto) (0-0.2) K/uL Immature Gran # (Auto) (0.00-0.02) K/uL Sodium (136-145) mmol/L Potassium (3.5-5.1) mmol/L Chloride (98-107) mmol/L Carbon Dioxide (21-32) mmol/L Anion Gap (3-11) BUN (7-18) mg/dl Creatinine (0.6-1.2) mg/dl Est Cr Clr Drug Dosing ml/min Est GFR ( Amer) Est GFR (Non-Af Amer) BUN/Creatinine Ratio (10-20) Glucose (70-99) mg/dl Calcium (8.5-10.1) mg/dl Total Bilirubin (0.2-1) mg/dl AST (15-37) U/L ALT (12-78) U/L Alkaline Phosphatase (45-117) U/L Total Creatine Kinase (26-192) U/L Troponin I (0-0.045) ng/ml Total Protein (6.4-8.2) gm/dl Albumin (3.4-5.0) gm/dl Globulin (2.5-4.0) gm/dl Albumin/Globulin Ratio (0.9-2) Urine Color Yellow Urine Appearance Cloudy A (Clear) Urine pH 5.0 (4.5-7.5) Ur Specific [place] 1.015 (1.000-1.030) Urine Protein Negative (Negative) Urine Glucose (UA) Negative (Negative) Urine Ketones Negative (Negative) Urine Blood 2+ H (Negative) Urine Nitrite Positive A (Negative) Urine Bilirubin Negative (Negative) Urine Urobilinogen Negative (Negative) Ur Leukocyte Esterase 1+ H (Negative) Urine WBC (Auto) 10-30 H (0-5) /hpf Urine RBC (Auto) 0-4 (0-4) /hpf U Hyaline Cast (Auto) 1-5 (0-5) /lpf U Epithel Cells (Auto) >30 H (0-5) /lpf Urine Bacteria (Auto) 3+ H (Negative) Urine Test Negative (Negative) Urine Opiates Screen Neg (Neg) Ur Methadone, Qual Neg (Neg) Urine Barbiturates Neg (Neg) Ur Phencyclidine (PCP) Neg (Neg) U Amphetamin/Meth Scrn Neg (Neg) MDMA (Ecstasy) Screen Neg (Neg) U Benzodiazepines Scrn Neg (Neg) Ur Cocaine Metabolite Neg (Neg) U Marijuana (THC) Screen Neg (Neg) Ethyl Alcohol mg/dL (0-3) mg/dl 05/27/20 05/27/20 05/27/20 Range/Units 04:46 04:46 04:46 WBC 15.33 H (4.8-10.8) K/uL RBC 5.13 (4.2-5.4) M/uL Hgb 15.9 (12.0-16.0) g/dL Hct 46.1 (37-47) % MCV 89.9 (80-100) fL MCH 31.0 (25-34) pg MCHC 34.5 (32-36) g/dL RDW Std Deviation 42.3 (36.4-46.3) fL RDW Coeff of Med 12.9 (11.5-14.5) % Plt Count 256 (130-400) K/uL MPV 9.6 (7.4-10.4) fL Immature Gran % (Auto) 0.2 % Neut % (Auto) 82.7 % Lymph % (Auto) 11.9 % Hood % (Auto) 4.3 % Eos % (Auto) 0.7 % Baso % (Auto) 0.2 % Neut # (Auto) 12.69 H (1.4-6.5) K/uL Lymph # (Auto) 1.82 (1.2-3.4) K/uL Hood # (Auto) 0.66 H (0.11-0.59) K/uL Eos # (Auto) 0.10 (0-0.5) K/uL Baso # (Auto) 0.03 (0-0.2) K/uL Immature Gran # (Auto) 0.03 H (0.00-0.02) K/uL Sodium 139 (136-145) mmol/L Potassium 3.1 L (3.5-5.1) mmol/L Chloride 110 H (98-107) mmol/L Carbon Dioxide 21 (21-32) mmol/L Anion Gap 8.0 (3-11) BUN 16 (7-18) mg/dl Creatinine 1.12 (0.6-1.2) mg/dl Est Cr Clr Drug Dosing 90.1 ml/min Est GFR ( Amer) 80.2 Est GFR (Non-Af Amer) 69.2 BUN/Creatinine Ratio 14.1 (10-20) Glucose 86 (70-99) mg/dl Calcium 8.4 L (8.5-10.1) mg/dl Total Bilirubin 0.3 (0.2-1) mg/dl AST 12 L (15-37) U/L ALT 18 (12-78) U/L Alkaline Phosphatase 72 (45-117) U/L Total Creatine Kinase 163 (26-192) U/L Troponin I < 0.015 (0-0.045) ng/ml Total Protein 7.6 (6.4-8.2) gm/dl Albumin 3.8 (3.4-5.0) gm/dl Globulin 3.8 (2.5-4.0) gm/dl Albumin/Globulin Ratio 1.0 (0.9-2) Urine Color Urine Appearance (Clear) Urine pH (4.5-7.5) Ur Specific [place] (1.000-1.030) Urine Protein (Negative) Urine Glucose (UA) (Negative) Urine Ketones (Negative) Urine Blood (Negative) Urine Nitrite (Negative) Urine Bilirubin (Negative) Urine Urobilinogen (Negative) Ur Leukocyte Esterase (Negative) Urine WBC (Auto) (0-5) /hpf Urine RBC (Auto) (0-4) /hpf U Hyaline Cast (Auto) (0-5) /lpf U Epithel Cells (Auto) (0-5) /lpf Urine Bacteria (Auto) (Negative) Urine Test (Negative) Urine Opiates Screen (Neg) Ur Methadone, Qual (Neg) Urine Barbiturates (Neg) Ur Phencyclidine (PCP) (Neg) U Amphetamin/Meth Scrn (Neg) MDMA (Ecstasy) Screen (Neg) U Benzodiazepines Scrn (Neg) Ur Cocaine Metabolite (Neg) U Marijuana (THC) Screen (Neg) Ethyl Alcohol mg/dL < 3.0 (0-3) mg/dl Imaging Data Attestation: I personally reviewed and interpreted this imaging study as follows: Radiologist's Impression: CT head without contrast IMPRESSION: 1. No acute intracranial findings. 2. Small air-fluid level within the left maxillary sinus. ACT 112: Negative or not required by law. Electronically signed by: Chandana Conner M.D. 05/27/2020 4:41 PM Dictated: 05/27/20 [id number] [facility] Narrative This patient is a 24-year-old female that presented to the emergency department in the early childhood educator aide hours for evaluation of altered mental status. She had a full work-up, and was observed in the emergency department. Unfortunately, she did not clinically improve. She was tachycardic. Her blood pressure has remained stable. There is concern for drug abuse/cause for her altered mental status. At this point, the patient has been in the emergency department for 12 hours with no improvement. I do not feel comfortable sending the patient home; therefore, hospitalist service was consulted for possible inpatient management. Impression & Plan Drug overdose, Altered behavior Discharge Plan Visit Data Chief Complaint: Overdose (Accidental) Stated Complaint: OVERDOSE ED Provider: Richard Turner ED Midlevel Provider: Brittany Wing Discharge Problem: Drug overdose, Altered behavior Patient Disposition: Admitted As Inpatient Discharge Instructions Interventions: ED Discharge Assessment Last Done: 05/27/20 18:37 Discharge Problem: Drug overdose Qualifiers: Encounter type: initial encounter Injury intent: undetermined intent Qualified Code(s): T50.904A - Poisoning by unspecified drugs, medicaments and biological substances, undetermined, initial encounter
[2020-05-27] MEDS ORDERED: cefTRIAXone SODIUM 2,000 MG/70 ML BAG IV STA (17:12)
--- NOTE | 2020-05-27 17:40 | History & Physical Report ---
Date of Service May 27, 2020 Assessment & Plan (1) Toxic encephalopathy: This is a 24yo F with a PMH of insomnia, asthma and ANDREY not on CPAP who presents to ED with altered mental status following ingestion of bath salts yesterday evening. -Has been monitored since early this morning - remains encephalopathic. HR of 112, RR of 25. Has received IV fluids and 6mg Ativan total during time in ED for agitation -Afebrile. Leukocytosis of 15. Initial lab work from 4:45am. Repeat CBC and CMP pending. Initial EKG with SVT at 144- repeat pending -CT head without acute abnormalities. Utox negative -Continue IV fluids with potassium replacement. Giving Banana bag as well -One-to-one as needed in setting of agitation. Ativan 0.5mg IV Q6H PRN, Lopressor 2.5mg IV Q6H PRN for HR >110 -NPO for now, advance diet to full liquids as tolerated -Discharge planning ordered (2) UTI (urinary tract infection): UA abnormal. Will give Rocephin empirically with urine culture pending. Blood cultures pending (3) Insomnia: (4) Panic disorder: H/o insomnia. Has tried Atarax in the past but made her more anxious, per records. Attempted to contact family for more information but unable to reach them at this time. Not taking any medications per external med rec (5) ANDREY (obstructive sleep apnea): Mild ANDREY documented but not on CPAP. Contraindicated now in setting of acute encephalopathy and aspiration risk (6) Asthma: Not on any home inhalers. Duonebs PRN for SOB and wheezing DVT Ppx: John fournier Code status: FULL PCP: Pam Dispo: Admitted to PCU. Discharge planning ordered. Patient seen in collaboration with Dr. Mcclure. Please see addendum. History of Present Illness Chief Complaint: AMS Primary Care Provider: Linn Hook PA-C This is a 24yo F with a PMH of insomnia, asthma and ANDREY not on CPAP who presents to ED with altered mental status following ingestion of bath salts yesterday evening, per background given to nurse by mom. There is initially a question of whether or not she ingested methamphetamine last night, but mom denies it. Was found to be altered at home by her mother, who called EMS and brought patient to the ED for further evaluation. Was seen by physician car rental sales assistant overnight and was found to be tachycardic and tachypneic. Has required 6 mg of Ativan in total due to agitation. Initial leukocytosis of 15. Has been receiving IV fluids. UA abnormal with evidence of infection. Utox negative. Continues to have garbled speech and responds inappropriately to questions. We will be admitting for further evaluation and management. Unable to obtain ROS due to cognitive state. Allergies Allergy/AdvReac Type Severity Reaction Status Date / Time cat dander Allergy Intermediate HIVES-SWELLING Verified 09/09/19 17:17 ITCHY WATERY EYES grass pollen Allergy Intermediate HIVES--SWELLING Verified 09/09/19 17:17 ITCHY WATERY EYES pollen extracts Allergy Intermediate HIVES--SWELLING Verified 09/09/19 17:17 ITCHY WATERY EYES. Home Medications Home Medications Medication Instructions Recorded Confirmed Type albuterol sulfate [Ventolin HFA] 2 puff INHALATION QID PRN 05/27/20 05/27/20 History diclofenac sodium 50 mg PO BID PRN 05/27/20 05/27/20 History hydroxyzine pamoate 25 - 50 mg PO HS PRN 05/27/20 05/27/20 History mometasone-formoterol [Dulera] 2 puff INHALATION BID 05/27/20 05/27/20 History montelukast [Singulair] 10 mg PO HS 05/27/20 05/27/20 History Past Med/Surg History Medical History Asthma Insomnia Marijuana use No acute medical problems ANDREY (obstructive sleep apnea) Surgical History History of tonsillectomy and adenoidectomy Family History Other Family history non-contributory Social History (Updated 05/27/20 @ 18:01 by Sumaya Phelps PA-C) Smoking Status: Current every day smoker Cigarettes Per Day: 5; Second Hand Exposure: No; Do You Dip or Chew Tobacco: No; Tobacco Cessation Education Requested by Patient: No Hx Alcohol Use: No Hx Substance Use: Yes Last Used Substance: Unknown Substance Use Type Other:: pipe found Preferred Language: Slovak Communication Ability: Impaired Communication Ability Comment: altered mental status Cath Lab Technologist Required: No Beliefs That Will Affect Care: None marital status: Single Current Living Situation: Parent Other Information That Helps Us Care for You: No Feels Safe at Home: Yes Safety Concerns: Feels Safe At This Time Assistive Devices: None Review of Systems Review of Systems: Unobtainable due to cognitive status Physical Exam Physical Exam: General Appearance: vitals as above,sitting up in bed, confused, intermittently agitated Head: normocephalic, atraumatic Eyes: normal inspection, dilated pupils minimally reactive to light, conjunctivae normal, anicteric sclerae ENT: external ear and nose normal, oropharynx normal Neck: normal visual inspection, trachea midline, no thyromegaly Respiratory: normal respiratory effort, lungs clear to auscultation, no wheeze, rales, rhonchi. No accessory muscle use Cardiovascular: tachycardic rate, regular rhythm, no murmur appreciated, normal peripheral pulses, no BLE edema. Vessels: no JVD Chest: normal inspection of chest Abdomen/GI: normal bowel sounds, soft, nontender, no hepatosplenomegaly Extremities/Musculoskeletal: no cyanosis or clubbing, extremities motor strength 5/5 Neurologic: PERRL, EOMI, accommodation nl, no face palsy, + dysarthria, CN's II-XI intact bilaterally and moves all extremities Psychiatric: disoriented, responding to verbal stimuli but not answering questions appropriately. Grasping items in the air, easily distracted during exam Skin: no rashes, normal color, warm/dry Results & Data Results & Data ([facility]) Vital Signs (Past 12 Hours) Vital Signs Pulse Pulse Resp BP BP Pulse Ox 05/27/20 15:10 112 H 25 H 96 05/27/20 15:01 105 H 36 H 153/146 H 96 05/27/20 15:00 95 H 26 H 97 05/27/20 14:50 94 H 21 95 05/27/20 14:40 104 H 41 H 95 05/27/20 14:30 111 H 22 146/92 H 95 05/27/20 14:20 112 H 16 98 05/27/20 14:10 104 H 27 H 97 05/27/20 14:02 108 H 18 155/96 H 97 05/27/20 14:00 106 H 106 H 18 155/96 H 95 05/27/20 13:31 22 135/96 97 05/27/20 13:15 22 98 05/27/20 13:01 24 114/80 97 05/27/20 12:45 96 05/27/20 12:30 140/80 98 05/27/20 12:15 125/100 99 05/27/20 12:04 110 H 20 124/111 H 95 05/27/20 12:01 112 H 23 124/111 H 96 05/27/20 10:01 118 H 20 131/82 05/27/20 09:02 116 H 20 125/104 H 99 05/27/20 08:00 126 H 20 133/94 99 05/27/20 06:37 137 H 16 131/68 98 Laboratory Results Short CBC 05/27/20 05/27/20 05/27/20 Range/Units 04:40 04:40 04:40 WBC (4.8-10.8) K/uL RBC (4.2-5.4) M/uL Hgb (12.0-16.0) g/dL Hct (37-47) % MCV (80-100) fL MCH (25-34) pg MCHC (32-36) g/dL RDW Std Deviation (36.4-46.3) fL RDW Coeff of Med (11.5-14.5) % Plt Count (130-400) K/uL MPV (7.4-10.4) fL Immature Gran % (Auto) % Neut % (Auto) % Lymph % (Auto) % [place] % (Auto) % Eos % (Auto) % Baso % (Auto) % Neut # (Auto) (1.4-6.5) K/uL Lymph # (Auto) (1.2-3.4) K/uL [place] # (Auto) (0.11-0.59) K/uL Eos # (Auto) (0-0.5) K/uL Baso # (Auto) (0-0.2) K/uL Immature Gran # (Auto) (0.00-0.02) K/uL Sodium (136-145) mmol/L Potassium (3.5-5.1) mmol/L Chloride (98-107) mmol/L Carbon Dioxide (21-32) mmol/L Anion Gap (3-11) BUN (7-18) mg/dl Creatinine (0.6-1.2) mg/dl Est Cr Clr Drug Dosing ml/min Est GFR ( Amer) Est GFR (Non-Af Amer) BUN/Creatinine Ratio (10-20) Glucose (70-99) mg/dl Calcium (8.5-10.1) mg/dl Total Bilirubin (0.2-1) mg/dl AST (15-37) U/L ALT (12-78) U/L Alkaline Phosphatase (45-117) U/L Total Creatine Kinase (26-192) U/L Troponin I (0-0.045) ng/ml Total Protein (6.4-8.2) gm/dl Albumin (3.4-5.0) gm/dl Globulin (2.5-4.0) gm/dl Albumin/Globulin Ratio (0.9-2) Urine Color Yellow Urine Appearance Cloudy A (Clear) Urine pH 5.0 (4.5-7.5) Ur Specific Shirley 1.015 (1.000-1.030) Urine Protein Negative (Negative) Urine Glucose (UA) Negative (Negative) Urine Ketones Negative (Negative) Urine Blood 2+ H (Negative) Urine Nitrite Positive A (Negative) Urine Bilirubin Negative (Negative) Urine Urobilinogen Negative (Negative) Ur Leukocyte Esterase 1+ H (Negative) Urine WBC (Auto) 10-30 H (0-5) /hpf Urine RBC (Auto) 0-4 (0-4) /hpf U Hyaline Cast (Auto) 1-5 (0-5) /lpf U Epithel Cells (Auto) >30 H (0-5) /lpf Urine Bacteria (Auto) 3+ H (Negative) Urine Test Negative (Negative) Urine Opiates Screen Neg (Neg) Ur Methadone, Qual Neg (Neg) Urine Barbiturates Neg (Neg) Ur Phencyclidine (PCP) Neg (Neg) U Amphetamin/Meth Scrn Neg (Neg) MDMA (Ecstasy) Screen Neg (Neg) U Benzodiazepines Scrn Neg (Neg) Ur Cocaine Metabolite Neg (Neg) U Marijuana (THC) Screen Neg (Neg) Ethyl Alcohol mg/dL (0-3) mg/dl 05/27/20 05/27/20 05/27/20 Range/Units 04:46 04:46 04:46 WBC 15.33 H (4.8-10.8) K/uL RBC 5.13 (4.2-5.4) M/uL Hgb 15.9 (12.0-16.0) g/dL Hct 46.1 (37-47) % MCV 89.9 (80-100) fL MCH 31.0 (25-34) pg MCHC 34.5 (32-36) g/dL RDW Std Deviation 42.3 (36.4-46.3) fL RDW Coeff of Med 12.9 (11.5-14.5) % Plt Count 256 (130-400) K/uL MPV 9.6 (7.4-10.4) fL Immature Gran % (Auto) 0.2 % Neut % (Auto) 82.7 % Lymph % (Auto) 11.9 % [place] % (Auto) 4.3 % Eos % (Auto) 0.7 % Baso % (Auto) 0.2 % Neut # (Auto) 12.69 H (1.4-6.5) K/uL Lymph # (Auto) 1.82 (1.2-3.4) K/uL [place] # (Auto) 0.66 H (0.11-0.59) K/uL Eos # (Auto) 0.10 (0-0.5) K/uL Baso # (Auto) 0.03 (0-0.2) K/uL Immature Gran # (Auto) 0.03 H (0.00-0.02) K/uL Sodium 139 (136-145) mmol/L Potassium 3.1 L (3.5-5.1) mmol/L Chloride 110 H (98-107) mmol/L Carbon Dioxide 21 (21-32) mmol/L Anion Gap 8.0 (3-11) BUN 16 (7-18) mg/dl Creatinine 1.12 (0.6-1.2) mg/dl Est Cr Clr Drug Dosing 90.1 ml/min Est GFR ( Amer) 80.2 Est GFR (Non-Af Amer) 69.2 BUN/Creatinine Ratio 14.1 (10-20) Glucose 86 (70-99) mg/dl Calcium 8.4 L (8.5-10.1) mg/dl Total Bilirubin 0.3 (0.2-1) mg/dl AST 12 L (15-37) U/L ALT 18 (12-78) U/L Alkaline Phosphatase 72 (45-117) U/L Total Creatine Kinase 163 (26-192) U/L Troponin I < 0.015 (0-0.045) ng/ml Total Protein 7.6 (6.4-8.2) gm/dl Albumin 3.8 (3.4-5.0) gm/dl Globulin 3.8 (2.5-4.0) gm/dl Albumin/Globulin Ratio 1.0 (0.9-2) Urine Color Urine Appearance (Clear) Urine pH (4.5-7.5) Ur Specific Shirley (1.000-1.030) Urine Protein (Negative) Urine Glucose (UA) (Negative) Urine Ketones (Negative) Urine Blood (Negative) Urine Nitrite (Negative) Urine Bilirubin (Negative) Urine Urobilinogen (Negative) Ur Leukocyte Esterase (Negative) Urine WBC (Auto) (0-5) /hpf Urine RBC (Auto) (0-4) /hpf U Hyaline Cast (Auto) (0-5) /lpf U Epithel Cells (Auto) (0-5) /lpf Urine Bacteria (Auto) (Negative) Urine Test (Negative) Urine Opiates Screen (Neg) Ur Methadone, Qual (Neg) Urine Barbiturates (Neg) Ur Phencyclidine (PCP) (Neg) U Amphetamin/Meth Scrn (Neg) MDMA (Ecstasy) Screen (Neg) U Benzodiazepines Scrn (Neg) Ur Cocaine Metabolite (Neg) U Marijuana (THC) Screen (Neg) Ethyl Alcohol mg/dL < 3.0 (0-3) mg/dl BMP 05/27/20 04:46 Sodium 139 Potassium 3.1 L Chloride 110 H Carbon Dioxide 21 BUN 16 Creatinine 1.12 Glucose 86 Calcium 8.4 L Cardiac Enzymes 05/27/20 Range/Units 04:46 Total Creatine Kinase 163 (26-192) U/L Troponin I < 0.015 (0-0.045) ng/ml Liver Function 05/27/20 Range/Units 04:46 Total Bilirubin 0.3 (0.2-1) mg/dl AST 12 L (15-37) U/L ALT 18 (12-78) U/L Alkaline Phosphatase 72 (45-117) U/L Albumin 3.8 (3.4-5.0) gm/dl Urine 05/27/20 Range/Units 04:40 Urine Color Yellow Urine Appearance Cloudy A (Clear) Urine pH 5.0 (4.5-7.5) Ur Specific Shirley 1.015 (1.000-1.030) Urine Protein Negative (Negative) Urine Glucose (UA) Negative (Negative) Diagnostic Findings CT head: IMPRESSION: 1. No acute intracranial findings. 2. Small air-fluid level within the left maxillary sinus. ECG Additional Comments: SVT at [address] abnormality Code Status & VTE Plan VTE Prophylaxis Plan VTE Prophylaxis will be ordered: Yes Supervising Physician Co-Signing Physician Notes I, Dr. Claude Mcclure, have seen the patient with physician car rental sales assistant and would like to comment that On physical exam -General/Psych: patient is verbal but is disoriented, she denies pain and allows for physical exam, but is mumbling some words and appear to have some barbosa ucination because she was pantomiming of trying to reach for something with her arms above her head -Heart: tachycardia -Lungs: on room air, no wheezing, no crackles -Abdomen: nontender, soft -: nurse reports foul smelling urine -Neuro/Eyes/Extremities: no facial droop, pupils are somewhat dilated, moves the extremities Assessment and Plan -This is a 24 year old patient who has been intoxicated and with acute encephalopathy from drug use and the likely substance is bath salts which is reported to hospital team by ED nurse when patient had periods of lucidity. ED notes also commented that at home patient had methamphetamine pipe at home when found by police and EMS. Urine toxicology screen are negative so likely that the intoxicating substances are bath salts -patient received Ativan in the ED and IV fluids -repeat labs, prn Ativan for agitation, continue IV fluids, empirically start antibiotics because of bacteria in UA and initial leukocytosis of 15,000. Follow cultures -monitor on telemetry, prn metoprolol IV for heart rate above 110 bpm -serum potassium of 3.1 on presentation, give potassium in the IV fluids, banana bag x 1, daily thiamine, daily folic acid -outpatient notes also describes history of reactive airway disease, will give prn nebs if shortness of breath of wheezing -outpatient notes of mild obstructive sleep apnea and poor sleep patterns, will not start CPAP at this time while in hospital until patient is more alert in order to prevent aspiration -SCDs for DVT prophylaxis -admitting hospitalist tried to call listed contact of father [phone] that patient to be admitted but could not reach him by phone -agree with other assessment and plans
[2020-05-27] MEDS ORDERED: METOPROLOL TARTRATE 1 MG/ML VIAL IV PRN (17:50)
[2020-05-27 18:10] LABS: Basophils # (auto) 0.03 K/uL (0-0.2); Basophils % (auto) 0.3 %; Eosinophils # (auto) 0.18 K/uL (0-0.5); Eosinophils % (auto) 1.5 %; Hematocrit (blood only) 42.6 % (37-47); Hemoglobin 14.4 g/dL (12.0-16.0); Immature Granulocytes # (auto) 0.04 K/uL (0.00-0.02); Immature Granulocytes % (auto) 0.3 %; Lymphocytes # (auto) 2.19 K/uL (1.2-3.4); Lymphocytes % (auto) 18.7 %; Mean Corpuscular Hemoglobin 30.4 pg (25-34); Mean Corpuscular Hgb Conc 33.8 g/dL (32-36); Mean Corpuscular Volume 89.9 fL (80-100); Mean Platelet Volume 9.5 fL (7.4-10.4); Monocytes # (auto) 0.79 K/uL (0.11-0.59); Monocytes % (auto) 6.7 %; Neutrophils # (auto) 8.49 K/uL (1.4-6.5); Neutrophils % (auto) 72.5 %; Platelet Count 185 K/uL (130-400); RDW Standard Deviation 42.9 fL (36.4-46.3); Red Blood Count 4.74 M/uL (4.2-5.4); White Blood Count 11.72 K/uL (4.8-10.8)
[2020-05-27 18:29] LABS: Acetaminophen < 2 ug/ml (10-30); Salicylate 4.5 mg/dl (2.8-20)
[2020-05-27] MEDS ORDERED: MULTI-VITAMIN INFUSION 10 ML, THIAMINE HCL 100 MG, FOLIC ACID 1 MG in SODIUM CHLORIDE 0... IV ONE (18:29)
[2020-05-27 18:36] LABS: Alanine Aminotransferase 18 U/L (12-78); Albumin Level 3.4 gm/dl (3.4-5.0); Aspartate Aminotransferase 16 U/L (15-37); BUN Creatinine Ratio 10.9 (10-20); Blood Urea Nitrogen 10 mg/dl (7-18); C Reactive Protein 0.43 mg/dl (0-0.29); Calcium 8.6 mg/dl (8.5-10.1); Carbon Dioxide 21 mmol/L (21-32); Chloride 113 mmol/L (98-107); Creatinine Clr Calc Pharmacy 110.9 ml/min; Est GFR (African American) 103.1; Est GFR (Non-African American) 88.9; Glucose 61 mg/dl (70-99); Potassium 3.7 mmol/L (3.5-5.1); Sodium 140 mmol/L (136-145)
[2020-05-27 18:39] LABS: Albumin Globulin Ratio 1.1 (0.9-2); Alkaline Phosphatase 62 U/L (45-117); Bilirubin,Total 0.8 mg/dl (0.2-1); Creatine Kinase 563 U/L (26-192); Globulin 3.1 gm/dl (2.5-4.0); Total Protein 6.5 gm/dl (6.4-8.2); Troponin I < 0.015 ng/ml (0-0.045)
[2020-05-27] MEDS ORDERED: POTASSIUM CHLORIDE 40 MEQ in SODIUM CHLORIDE 0.9% 1000ML 1,000 ML IV SCH (19:29)
[2020-05-27] MEDS ORDERED: ALBUTEROL HFA 8 GM INHALER INH PRN (19:29)
[2020-05-27] MEDS ORDERED: D5W AND 1/2NSS 1,000 ML IV SCH (19:45)
[2020-05-27] MEDS: LORazepam 0.5 MG/1 ML VIAL IV PRN (20:33)
[2020-05-27] MEDS ORDERED: OLANZapine 10 MG/2.1 ML SDV IM STA (22:05)
[2020-05-27] MEDS ORDERED: OLANZapine 10 MG/2.1 ML SDV IM PRN (22:16)
[2020-05-27] MEDS ORDERED: LORazepam 1 MG/2 ML VIAL IV STA (22:23)
[2020-05-27] MEDS ORDERED: LACTATED RINGER'S 1,000 ML IV ONE (23:13)
[2020-05-27] MEDS ORDERED: MAGNESIUM SULFATE / D5W 1 GM/100 ML BAG IV ONE (23:15)
[2020-05-27] MEDS ORDERED: CEFEPIME CONSULT ACTIVE PRN (23:16)
[2020-05-27] MEDS: CEFEPIME 2,000 MG in SYRINGE 0 ML IV SCH (23:56)
[2020-05-28] MEDS: D5W AND LACTATED RINGERS 1,000 ML IV SCH ×2 (01:43→09:40)
[2020-05-28] MEDS: LORazepam 0.5 MG/1 ML VIAL IV PRN ×2 (03:40→09:50)
[2020-05-28 06:32] LABS: Hematocrit (blood only) 43.1 % (37-47); Hemoglobin 14.5 g/dL (12.0-16.0); Mean Corpuscular Hemoglobin 30.5 pg (25-34); Mean Corpuscular Hgb Conc 33.6 g/dL (32-36); Mean Corpuscular Volume 90.5 fL (80-100); Mean Platelet Volume 9.6 fL (7.4-10.4); Platelet Count 215 K/uL (130-400); RDW Coefficient of Variation 12.9 % (11.5-14.5); RDW Standard Deviation 42.5 fL (36.4-46.3); Red Blood Count 4.76 M/uL (4.2-5.4)
[2020-05-28] MEDS ORDERED: cloNIDine HCL 0.1 MG TAB PO ONE (06:45)
[2020-05-28] MEDS ORDERED: D5W AND LACTATED RINGERS 1,000 ML IV ONE (06:46)
[2020-05-28 07:22] LABS: Albumin Globulin Ratio 1.1 (0.9-2); Albumin Level 3.2 gm/dl (3.4-5.0); BUN Creatinine Ratio 11.1 (10-20); Calcium 8.4 mg/dl (8.5-10.1); Creatinine Clr Calc Pharmacy 155.3 ml/min; Est GFR (Non-African American) 125.1; Potassium 3.6 mmol/L (3.5-5.1); Total Protein 6.2 gm/dl (6.4-8.2)
[2020-05-28] MEDS: THIAMINE HCL 100 MG TAB PO SCH (07:45)
[2020-05-28] MEDS: FOLIC ACID 1 MG TAB PO SCH (07:45)
--- NOTE | 2020-05-28 08:45 | XRay Report ---
XR chest 1V portable HISTORY: Hypoxia. COMPARISON: Chest 06/08/2019. FINDINGS: The lungs are clear. Cardiac silhouette is normal in size. No pleural effusions. No pneumot horax. IMPRESSION: No acute process. ACT 112: Negative or not required by law. Electronically signed by: Zac Castro M.D. 05/28/2020 8:44 AM
[2020-05-28] MEDS ORDERED: LORazepam 1 MG/2 ML VIAL IV PRN (10:02)
[2020-05-28] MEDS: CEFEPIME 2,000 MG in SYRINGE 0 ML IV SCH ×2 (11:46→23:58)
--- NOTE | 2020-05-28 13:01 | Electrocardiogram Report ---
Test Reason : Blood Pressure : / mmHG Vent. Rate : 106 BPM Atrial Rate : 106 BPM P-R Int : 182 ms QRS Dur : 086 ms QT Int : 346 ms P-R-T Axes : 064 075 028 degrees QTc Int : 459 ms Sinus tachycardia Otherwise normal ECG When compared with ECG of 27-MAY-2020 05:07, No significant change was found Confirmed by Andrew Ribeiro ([id number]) on 05/28/2020 1:00:42 PM Referred By: REFERRED SELF Confirmed By:Andrew Ribeiro
--- NOTE | 2020-05-28 13:09 | Communication Note ---
Date of Service: May 28, 2020 Psychiatric consult received for "depression and panic." Patient presented to the ER yesterday with suspected methamphetamine abuse after her parents called 911 and police found a meth pipe in her bedroom, and brought her to the ER due to bizarre behavior. She was agitated and confused, and has remained so since admission. Admission labs notable for WBCs 15.33, potassium 3.1, creatinine kinase 563, troponin negative X2, C-reactive protein 0.43, prolactin 0.05, normal TSH, UA with 2+ blood, +nitrate, 1+ leukocyte esterase, 10-30 WBCs, 3+ bacteria, and > 30 epithelial cells. test negative. UDS negative. She has been tachycardic, hypertensive, and was admitted to the hospitalist service for delirium secondary to substance abuse, with elevated creatinine kinase, hypokalemia, and a question of a UTI. Her mother told staff that she had been using bath salts. She was a code robbins last evening as she was hitting staff, swearing, jumping out of bed, and appeared to be hallucinating, and received IV Ativan. This morning she was disoriented, did not know where she was or the time, did not recall the events leading up to hospitalization, and was easily agitated and demanding to leave. She is receiving IV fluids, potassium repletion, and has had multiple episodes requiring restraints. Psychiatric liaison nurse saw her; speech incomprehensible, remains disoriented, now in four-point restraints. Recommendations: Cannot assess for underlying depression and anxiety during an episode of substance-induced delirium. The acute issue is her substance induced encephalopathy. I have added synthetic stimulant and cannabinoid screens to her initial labs. -Please obtain collateral information from her family regarding the details of her substance abuse, as this will help direct further treatment. -Use of chemical restraints for behavior that puts staff and/or patient at acute risk of harm: She has received multiple doses of IV Ativan, and olanzapine 5 mg yesterday, 2.5 mg this morning. Recommend a higher dose of antipsychotic, up to 10 mg of olanzapine 3 times daily, while monitoring for cardiac effects and dystonia. EKG yesterday morning showed prolonged QTC of 548, and a repeat later in the day had improved to 459. Avoid antipsychotics when possible given the risk of QTC prolongation. -Recommend case management referral for assistance with substance abuse treatment once the patient is no longer encephalopathic.
[2020-05-28] MEDS ORDERED: OLANZapine 10 MG/2.1 ML SDV IM PRN (14:13)
--- NOTE | 2020-05-28 17:17 | Hospitalist Progress Note ---
Date of Service May 28, 2020 Assessment & Plan (1) Toxic encephalopathy: This is a 24yo F with a PMH of insomnia, asthma and ANDREY not on CPAP who presents to ED with altered mental status following ingestion of bath salts yesterday evening. Discussed with the mother who mentioned that her daughter has been trying to kill herself by taking unidentified medications CT head without acute abnormalities. Utox negative She remains very aggressive, combative and seems to be injurious to herself and others She required intravenous Ativan and IM Zyprexa without much improvement of her condition Appreciate psychiatrist input and recommendation We will give Zyprexa 10 mg IM every 8 hourly as needed and stop Ativan She has been requiring soft restraints of the limbs to keep her in bed Requiring one-to-one sitter NPO for now, advance diet to full liquids as tolerated Suicidal ideation As above Awaiting psychiatric input and recommendation (2) UTI (urinary tract infection): UA abnormal. Will give Rocephin empirically with urine culture growing gram-negative bacilli, sensitivities pending Blood cultures pending Continue intravenous Rocephin (3) Insomnia: (4) Panic disorder: H/o insomnia. Has tried Atarax in the past but made her more anxious, per records. Attempted to contact family for more information but unable to reach them at this time. Not taking any medications per external med rec (5) ANDREY (obstructive sleep apnea): Mild ANDREY documented but not on CPAP. Contraindicated now in setting of acute encephalopathy and aspiration risk (6) Asthma: Not on any home inhalers. Duonebs PRN for SOB and wheezing Will give nebulized bronchodilators DVT Ppx: John fournier Code status: FULL PCP: Pam Dispo: Admitted to PCU. Discharge planning ordered. Discussed with the mother and will have further discussions when she comes to see the patient Admission and Anticipated Discharge Date Admission Date: May 27, 2020 Subjective 05/28/2020 The patient was seen and examined in telemetry unit She was admitted yesterday with acute confusion and mental status change following ingestion of bath salt She has been very aggressive, combative , harmful to herself and to others in telemetry unit She wanted to go home and sign out AMA She required soft restraints to calm her down including indications Review of Systems Review of Systems: Unobtainable due to cognitive status Physical Exam Physical Exam: Sitting on bed with anxiety and agitation Constitutional: well developed, well nourished, + intoxicated appearing and + obese; no acute distress Eyes: PERRL, conjunctivae normal, anicteric sclerae ENMT: external ear and nose normal, oropharynx normal Neck: trachea midline, no thyromegaly Respiratory: normal respiratory effort; no respiratory distress Auscultation: + diminished lung sounds and + wheezes (Bilateral wheezing mostly at the bases) Cardiovascular: Rate/Rhythm: regular rate and regular rhythm Heart Sounds: no murmur Gastrointestinal (Abdomen): Inspection/Auscultation: abdomen normal to inspection and normal bowel sounds; abdomen not distended Percussion/Palpation: abdomen soft; abdomen nontender Musculoskeletal: No acute arthritis involving any joint Neurologic: moves all extremities Alert awake and totally disoriented with acute confusion Psychiatric: Orientation: alert Insight: + poor insight Judgement: + poor judgement Lymphatic: no cervical or axillary lymphadenopathy Results & Data Results & Data ([facility]) Vital Signs (Past 12 Hours) Vital Signs Temp Pulse Pulse Resp BP Pulse Ox 05/28/20 09:21 97 H 05/28/20 06:40 36.8 C 125 H 20 161/84 H 97 Laboratory Results Short CBC 05/27/20 05/28/20 Range/Units 17:41 05:31 WBC 11.72 H 9.00 (4.8-10.8) K/uL Hgb 14.4 14.5 (12.0-16.0) g/dL Hct 42.6 43.1 (37-47) % Plt Count 185 215 (130-400) K/uL BMP 05/27/20 05/28/20 17:41 05:31 Sodium 140 140 Potassium 3.7 D 3.6 Chloride 113 H 112 H Carbon Dioxide 21 22 BUN 10 D 7 Creatinine 0.91 0.65 Glucose 61 L 87 Calcium 8.6 8.4 L Cardiac Enzymes 05/27/20 Range/Units 17:41 Total Creatine Kinase 563 H (26-192) U/L Troponin I < 0.015 (0-0.045) ng/ml Liver Function 05/27/20 05/28/20 Range/Units 17:41 05:31 Total Bilirubin 0.8 D 1.0 (0.2-1) mg/dl AST 16 18 (15-37) U/L ALT 18 15 (12-78) U/L Alkaline Phosphatase 62 65 (45-117) U/L Albumin 3.4 3.2 L (3.4-5.0) gm/dl Medications Administered Current Inpatient Medications Albuterol (Albuterol Hfa 8 Gm Inhaler) 2 puffs INH QID PRN; Protocol PRN Reason: Respiratory Distress Stop: 06/26/20 19:28 Folic Acid (Folic Acid 1 Mg Tab) 1 mg PO QAM [facility] Stop: 06/27/20 08:59 Last Admin: 05/28/20 07:45 Dose: 1 mg Documented by: Dextrose/Lactated Ringer's (D5w And Lactated Ringers) 1,000 mls @ 80 mls/hr IV .[id number] [facility] Stop: 06/27/20 01:29 Last Admin: 05/28/20 09:40 Dose: 80 mls/hr Documented by: Cefepime HCl 2,000 mg/ Syringe 20 mls @ 5 mls/min IV Q12H [facility] Stop: 06/07/20 00:00 Last Admin: 05/28/20 11:46 Dose: 5 mls/min Documented by: Metoprolol Tartrate (Metoprolol Tartrate 1 Mg/Ml Vial) 2.5 mg IV Q6H PRN PRN Reason: HR >110 Stop: 06/26/20 17:49 Miscellaneous Information (Cefepime Consult Active) 1 ea N/A UD PRN PRN Reason: Consult Stop: 06/26/20 23:15 Olanzapine (Olanzapine 10 Mg/2.1 Ml Sdv) 10 mg IM Q8H PRN PRN Reason: Agitation Stop: 06/27/20 14:14 Last Admin: 05/28/20 14:33 Dose: 10 mg Documented by: Thiamine HCl (Thiamine Hcl 100 Mg Tab) 100 mg PO QAM [facility] Stop: 06/27/20 08:59 Last Admin: 05/28/20 07:45 Dose: 100 mg Documented by:
[2020-05-28] MEDS ORDERED: LORazepam 2 MG/4 ML VIAL IV STA (17:50)
[2020-05-28] MEDS ORDERED: LORazepam 2 MG/4 ML VIAL ONE (17:51)
[2020-05-28] MEDS ORDERED: cefTRIAXone SODIUM 1,000 MG in DEXTROSE 5% 50 ML IV SCH (18:00)
[2020-05-28] MEDS ORDERED: VANCOMYCIN HCL 1,000 MG in SODIUM CHLORIDE 0.9% 500 ML IV ONE (19:14)
[2020-05-28] MEDS ORDERED: VANCOMYCIN CONSULT ACTIVE PRN (19:28)
[2020-05-28] MEDS ORDERED: VANCOMYCIN HCL 1,750 MG in SODIUM CHLORIDE 0.9% 500 ML IV SCH (20:00)
[2020-05-28] MEDS: ACETAMINOPHEN 325 MG TAB PO PRN (23:34)
--- NOTE | 2020-05-29 05:51 | Electrocardiogram Report ---
Test Reason : Blood Pressure : / mmHG Vent. Rate : 117 BPM Atrial Rate : 117 BPM P-R Int : 186 ms QRS Dur : 082 ms QT Int : 306 ms P-R-T Axes : 074 084 048 degrees QTc Int : 426 ms Sinus tachycardia Nonspecific T wave abnormality Abnormal ECG When compared with ECG of 27-MAY-2020 18:02, No significant change was found Confirmed by Ubaldo Trinidad ([id number]) on 05/29/2020 5:50:26 AM Referred By: REFERRED SELF Confirmed By:Ubaldo Trinidad
[2020-05-29 06:29] LABS: Basophils # (auto) 0.02 K/uL (0-0.2); Basophils % (auto) 0.2 %; Eosinophils # (auto) 0.57 K/uL (0-0.5); Eosinophils % (auto) 5.3 %; Hematocrit (blood only) 41.4 % (37-47); Hemoglobin 13.8 g/dL (12.0-16.0); Immature Granulocytes # (auto) 0.02 K/uL (0.00-0.02); Immature Granulocytes % (auto) 0.2 %; Lymphocytes # (auto) 1.74 K/uL (1.2-3.4); Lymphocytes % (auto) 16.3 %; Mean Corpuscular Hemoglobin 30.5 pg (25-34); Mean Corpuscular Hgb Conc 33.3 g/dL (32-36); Mean Corpuscular Volume 91.4 fL (80-100); Mean Platelet Volume 9.4 fL (7.4-10.4); Monocytes # (auto) 1.06 K/uL (0.11-0.59); Monocytes % (auto) 9.9 %; Neutrophils # (auto) 7.28 K/uL (1.4-6.5); Neutrophils % (auto) 68.1 %; Platelet Count 184 K/uL (130-400); RDW Standard Deviation 43.7 fL (36.4-46.3); Red Blood Count 4.53 M/uL (4.2-5.4); White Blood Count 10.69 K/uL (4.8-10.8)
[2020-05-29] MEDS: ACETAMINOPHEN 325 MG TAB PO PRN (06:38)
[2020-05-29 07:03] LABS: Albumin Level 3.1 gm/dl (3.4-5.0); BUN Creatinine Ratio 9.6 (10-20); Calcium 8.7 mg/dl (8.5-10.1); Creatinine Clr Calc Pharmacy 111.7 ml/min; Est GFR (African American) 104.5; Est GFR (Non-African American) 90.1; Magnesium 2.2 mg/dl (1.8-2.4); Potassium 3.9 mmol/L (3.5-5.1)
[2020-05-29 07:06] LABS: Albumin Globulin Ratio 0.9 (0.9-2); Bilirubin,Total 0.8 mg/dl (0.2-1); Globulin 3.3 gm/dl (2.5-4.0); Phosphorus 4.3 mg/dl (2.5-4.9); Total Protein 6.4 gm/dl (6.4-8.2)
[2020-05-29] MEDS ORDERED: KETOROLAC 30 MG/ML VIAL IV PRN (07:46)
[2020-05-29] MEDS ORDERED: VANCOMYCIN HCL 1,250 MG in SODIUM CHLORIDE 0.9% 250 ML IV SCH (08:00)
[2020-05-29] MEDS: FOLIC ACID 1 MG TAB PO SCH (08:04)
[2020-05-29] MEDS: THIAMINE HCL 100 MG TAB PO SCH (08:05)
[2020-05-29] MEDS ORDERED: LORazepam 0.5 MG TAB PO STA (08:15)
--- NOTE | 2020-05-29 10:30 | Pharmacy Report ---
Pharmacy Abx Initial Consult - Date of Service May 29, 2020 - Pharmacy Dosing Scope Date of Consult: 05/29/20 Consultation requested by: Dr. Parsons Pharmacy is consulted to initiate Vancomycin IV dosing therapy, order appropriate labs and adjust drug dose/frequency. - Subjective The patient is a 24 year old F admitted on 05/27/20 17:39. - Objective Height: 5 ft 7 in Weight: 90.3 kg Vital Signs (Past 12hrs): Vital Signs Temp Pulse Pulse Resp BP Pulse Ox 05/29/20 07:37 36.7 C 100 H 18 133/88 92 05/29/20 04:31 36.8 C 116 H 20 142/86 H 98 05/28/20 23:04 37.5 C 119 H 22 132/84 94 05/28/20 22:49 120 H Lab Results (24hrs): Laboratory Tests (24 Hours) 05/29/20 05/29/20 06:11 06:11 WBC 10.69 Neut # (Auto) 7.28 H Creatinine 0.90 Est Cr Clr Drug Dosing 111.7 Micro Results: 05/27/20 04:40 Urine Culture - Final Urine,Clean Catch Escherichia coli - Assessment & Plan Assessment 24 year old F admitted for toxic encephalopathy and now with UTI, possible bacteremia. Cefepime started first yesterday and then Vancomycin. Plan Vancomycin IV * Estimated PK Parameters: Vd 0.6 L/kg, Naresh 0.09 hr-1, t1/2 8 hr * Loading dose: 1750 mg IV (20 mg/kg) x 1 yesterday at 2000. * Maintenance dose: 1250 mg IV (13.8 mg/kg) every 12 hours * Goal trough level for possible bacteremia: 15 to 20 mcg/mL * Trough level ordered for 05/30/20 before dose at 0800. Pharmacy will continue to follow and will adjust dose/frequency as necessary. Thank you.
--- NOTE | 2020-05-29 10:56 | Psychiatric Consultation ---
Date of Consultation May 29, 2020 Impression / Recommendations Impression Dr. Raina Dorantes was directly involved in review and discussion of the patient's case and participated in medical decision making regarding treatment recommendations. RECOMMENDATIONS: 05/29 - Psychiatric consultation requested to evaluate patient for depression and panic attacks. Pt was admitted for substance-induced encephalopathy with unclear history of what specifically was ingested. At one point, the patient's mother reported concern for suicidality, but is now denying safety concerns. - Both patient and mother are denying safety concerns at this time. Concerns regarding acute mood changes and suicidality are denied by both patient and mother. Mother did disclose concerns about patient's "search history" - suggesting patient may have been looking up ways to harm herself - but denied concern. Mother declined to fill out 302 petitioning statement and reports feeling comfortable taking patient home when medically cleared. - Appointment scheduled with [facility] for psychiatric medication management on 06/17/2020 at 08:20am. Will fax documentation from this consultation to their office for coordination of care. - It is recommended that patient not receive a prescription for lorazepam or any other substances with abuse potential on discharge, given the concerns for substance abuse. She was informed of this during our conversation. - Pt declined any outpatient substance abuse treatment or rehab at this time. - No indication for involuntarily psychiatric hospitalization at this time. Reviewed safety plan and recommendations for management of a crisis situation with both patient and mother. All parties denied concerns regarding discharge home when patient is medically cleared. Psych History Identifying Data 24-year-old female admitted medically on 05/27/2020 after presenting to the ED via EMS with suspected substance-induced delirium. Exact substance consumed remains unclear, as toxicology screen was surprisingly negative. Psychiatric consultation was requested to evaluate patient for anxiety and depression, due to concerns verbalized by patient's mother. Chief Complaint "I honestly don't know how I got here. I took my normal sleep meds and a shroom, then I don't even know." History of Present Illness Saira Kendrick is a 24-year-old female admitted medically on 05/27/2020 after prolonged observation in the ED for what was presumed to be substance-induced delirium. There are numerous reports suggesting that patient had consumed substance and was displaying odd and concerning behavior, leading mother to call 911. EMS report suggests the patient was found with a knife and methamphetamine pipe. Initial toxicology screening was entirely negative - synthetics ordered and still pending. Reports changed and there was unclear documentation that patient may have used bath salts. Upon visit with our psychiatric nurse liaison, patient denied any substance abuse at all. [id number], patient had been incoherent and displaying aggression and combative behavior - even chewing through soft restraints. Pt required numerous prn medications to manage agitation. On the morning of 05/29, the patient was clear and able to participate in a coherent conversation. Psychiatric consultation was requested to follow-up on concerns for depression and anxiety verbalized by mother. Prior to evaluation by this provider, our psychiatric nurse liaison met with patient, who denied using methamphetamine or bath salts the evening prior to her arrival. She signed an SUKHDEV to obtain collateral from the mother, who also denied concerns and is willing for patient to return home. See liaison note for full details. Mother, Leticia, was present in room and was asked to leave so that patient could be interviewed. Pt was cooperative with psychiatric assessment, but is a poor/evasive historian and is unable to recall the events prior to her arrival as well as current prescription medications or history of psychotropic medication trials. She states "I honestly don't know how I got here. I took my normal sleep meds and a shroom, then I don't even know." Pt is unable to tell this provider any of her scheduled medications, stating "I just take whatever's prescribed." Pt was directly questioned about the methamphetamine pipe and the knife found on the scene upon EMS arrival - she continues to adamantly deny that she used meth or bath salts. Pt states that was her "first time doing shrooms, and I'm going to stick with just ibuprofen from now on." Pt denies significant mood or anxiety concerns and denies SI or history of suicide attempts. Pt states she and her mother have already developed a safety plan that includes mother securing all medications and patient being consistently supervised for several weeks. She does admit to "excitement" and anxiety surrounding an upcoming move. She admits was seen at [facility] prior to the COVID-19 pandemic and is interested in rescheduling with their office. Pt did request to continue to utilize lorazepam for sleep and anxiety (given here for acute agitation/aggression). Pt was very clearly told that this is not an appropriate medication choice based on her ongoing substance use. She was told the medication would not be prescribed on discharge, and that we are not recommending any prescriptions with abuse potential be prescribed as an outpatient either. Pt declined to consider substance abuse treatment at this time. Mother was invited back into the room and corroborated the patient's safety plan, admitting "we will be watching her like a hawk." Pt was reminded by her mother that she has a son she needs to think about, to which patient replied - "I know...and pizza in the fridge!" Mother denied safety concerns. Mother was asked to step into the barbosa in order to privately obtain information. Mother admits to reporting concern for suicidality, based on the "search history on her iPad was concerning, but I don't think she would do anything." Pt declined to pursue a 302 petitioning statement and reported feeling able to safety manage patient outside of the hospital. Reviewed crisis resources with mother, and encouraged her to call 911 with any safety concerns. All parties are requesting discharge as soon as possible and denied any other needs from our service at this time. Past Psychiatric History Outpatient Services: Was previously seen at [facility] for medication management - requesting to have appointments resumed. Previous Psych Admissions: Denied History of Previous Suicide Attempt: No Past Medication Trials: Unable to recall both current prescriptions and previous psychotropic medication trials. Allergies Allergy/AdvReac Type Severity Reaction Status Date / Time cat dander Allergy Intermediate HIVES-SWELLING Verified 09/09/19 17:17 ITCHY WATERY EYES grass pollen Allergy Intermediate HIVES--SWELLING Verified 09/09/19 17:17 ITCHY WATERY EYES pollen extracts Allergy Intermediate HIVES--SWELLING Verified 09/09/19 17:17 ITCHY WATERY EYES. Home Medications Home Medications Medication Instructions Recorded Confirmed Type albuterol sulfate [Ventolin HFA] 2 puff INHALATION QID PRN 05/27/20 05/27/20 History diclofenac sodium 50 mg PO BID PRN 05/27/20 05/27/20 History hydroxyzine pamoate 25 - 50 mg PO HS PRN 05/27/20 05/27/20 History mometasone-formoterol [Dulera] 2 puff INHALATION BID 05/27/20 05/27/20 History montelukast [Singulair] 10 mg PO HS 05/27/20 05/27/20 History Family History Denies known family history of mental health conditions. Substance Abuse History Pt has been consistently inconsistent with reports surrounding substance abuse. Initially denied all substance use, then admitted to smoking marijuana, then informed this provider that she had used "shrooms" for the first time. Pt has no explanation for the drug paraphernalia found when EMS arrived on scene. Personal History Living Arrangements: Home (with mom, mother's boyfriend, and sister) Highest Grade Completed Comment: planning to attend [employer] in 06/2020 Employment Status: Unemployed (previously worked at [employer]) Marital Status: (states "" went to shelter a few weeks ago) Number Of Children: 1 son History of Legal Problems: Denied Patient History Medical History Asthma Insomnia Marijuana use No acute medical problems ANDREY (obstructive sleep apnea) Surgical History History of tonsillectomy and adenoidectomy Family History Other Family history non-contributory Social History Smoking Status: Current every day smoker Cigarettes Per Day: 5; Second Hand Exposure: No; Do You Dip or Chew Tobacco: No; Tobacco Cessation Education Requested by Patient: No Hx Alcohol Use: No Hx Substance Use: Yes Last Used Substance: Unknown Substance Use Type Other:: pipe found Preferred Language: Maltese Communication Ability: Impaired Communication Ability Comment: altered mental status Field Support Representative Required: No Beliefs That Will Affect Care: None marital status: Single Current Living Situation: Parent Other Information That Helps Us Care for You: No Feels Safe at Home: Yes Safety Concerns: Feels Safe At This Time Assistive Devices: None Physical Exam Psychiatric: Orientation: alert, oriented x 3 and cooperative (though poor historian, making it difficult to gather information) Apperance: appropri ately dressed and + disheveled; + inappropriately groomed Pt is dressed in hospital gown, has short dyed hair, wearing corrective lenses, and has numerous facial piercings. Pt is malodorous and hygiene and grooming are not ideal. Pt does not appear to be in acute distress. Eye Contact: good eye contact Motor Behavior: no abnormal motor movements (observed while sitting on bed) Speech: normal rate/rhythm/volume of speech Affect: euthymic affect Mood: no depressed mood ("I'm much better now") and no anxious mood Thought Process: goal directed thought process and + concrete thought process Thought Content: + preoccupation (with discharge ); not paranoid, no hopelessness and no worthlessness Suicidal Thoughts: denies suicidal thoughts, denies suicidal plan and denies suicidal intent Homicidal Thoughts: denies homicidal thoughts Hallucinations: no auditory hallucinations and no visual hallucinations Cognition: attention grossly intact and language grossly intact Estimated Intelligence: + below average estimated intelligence Insight: + poor insight (likely due to immaturity and substance abuse history ) Judgement: + poor judgement Vital Signs (Past 24 Hours): Last Vital Signs Temp 36.7 C 05/29/20 07:37 Pulse 100 H 05/29/20 07:37 Resp 18 05/29/20 07:37 BP 133/88 05/29/20 07:37 Pulse Ox 92 05/29/20 07:37 Review of Systems Constitutional: denied Cardiovascular: denied Respiratory: denied Gastrointestinal: denied Neurological: denied Psychiatric: denies symptoms other than stated above Total of at least 10 systems reviewed, pertinent positives as above and in HPI. Results & Data (PSY) Medications Administered Acetaminophen (Acetaminophen 325 Mg Tab) 650 mg PO Q6H PRN PRN Reason: Pain Stop: 06/27/20 23:22 Last Admin: 05/29/20 06:38 Dose: 650 mg Documented by: [id number] Admin: 05/28/20 23:34 Dose: 650 mg Documented by: [id number] Folic Acid (Folic Acid 1 Mg Tab) 1 mg PO QAM [facility] Stop: 06/27/20 08:59 Last Admin: 05/29/20 08:04 Dose: 1 mg Documented by: [id number] Admin: 05/28/20 07:45 Dose: 1 mg Documented by: [id number] Dextrose/Lactated Ringer's (D5w And Lactated Ringers) 1,000 mls @ 80 mls/hr IV .[id number] [facility] Stop: 06/27/20 01:29 Last Admin: 05/29/20 00:00 Dose: 80 mls/hr Documented by: [id number] Infusion: 05/28/20 23:59 Dose: 80 mls/hr Documented by: [id number] Infusion: 05/28/20 22:19 Dose: 0 mls/hr Documented by: [id number] Admin: 05/28/20 09:40 Dose: 80 mls/hr Documented by: [id number] Infusion: 05/28/20 09:32 Dose: 80 mls/hr Documented by: [id number] Infusion: 05/28/20 07:05 Dose: 80 mls/hr Documented by: [id number] Admin: 05/28/20 01:43 Dose: 150 mls/hr Documented by: [id number] Cefepime HCl 2,000 mg/ Syringe 20 mls @ 5 mls/min IV Q12H [facility] Stop: 06/07/20 00:00 Last Admin: 05/28/20 23:58 Dose: 5 mls/min Documented by: [id number] Admin: 05/28/20 11:46 Dose: 5 mls/min Documented by: [id number] Admin: 05/27/20 23:56 Dose: 5 mls/min Documented by: [id number] Vancomycin HCl 1,250 mg/ (Sodium Chloride) 275 mls @ 200 mls/hr IV Q12H [facility]; Protocol Stop: 06/12/20 07:59 Last Infusion: 05/29/20 09:30 Dose: 0 mls/hr Documented by: [id number] Admin: 05/29/20 08:01 Dose: 200 mls/hr Documented by: [id number] Ketorolac Tromethamine (Ketorolac 30 Mg/Ml Vial) 30 mg IV Q6H PRN PRN Reason: Pain Stop: 06/03/20 07:45 Last Admin: 05/29/20 07:57 Dose: 30 mg Documented by: [id number] Olanzapine (Olanzapine 10 Mg/2.1 Ml Sdv) 10 mg IM Q8H PRN PRN Reason: Agitation Stop: 06/27/20 14:14 Last Admin: 05/28/20 14:33 Dose: 10 mg Documented by: [id number] Thiamine HCl (Thiamine Hcl 100 Mg Tab) 100 mg PO QAM [facility] Stop: 06/27/20 08:59 Last Admin: 05/29/20 08:05 Dose: 100 mg Documented by: [id number] Admin: 05/28/20 07:45 Dose: 100 mg Documented by: [id number] Coding Level of Care Code 00885 [facility] Intl Hosp Care Lvl 2
[2020-05-29] MEDS: D5W AND LACTATED RINGERS 1,000 ML IV SCH ×2 (11:13)
[2020-05-29] MEDS: CEFEPIME 2,000 MG in SYRINGE 0 ML IV SCH (11:14)
--- NOTE | 2020-05-29 12:42 | Hospitalist Progress Note ---
Date of Service May 29, 2020 Assessment & Plan (1) Toxic encephalopathy: This is a 24yo F with a PMH of insomnia, asthma and ANDREY not on CPAP who presents to ED with altered mental status following ingestion of bath salts yesterday evening. Discussed with the mother who mentioned that her daughter has been trying to kill herself by taking unidentified medications CT head without acute abnormalities. Utox negative She remains very aggressive, combative and seems to be injurious to herself and others She required intravenous Ativan and IM Zyprexa without much improvement of her condition Appreciate psychiatrist input and recommendation We will give Zyprexa 10 mg IM every 8 hourly as needed and stop Ativan She has been requiring soft restraints of the limbs to keep her in bed Requiring one-to-one sitter NPO for now, advance diet to full liquids as tolerated No more confusion Suicidal ideation has been ruled out Appreciate psychiatrist input and recommendation (2) UTI (urinary tract infection): UA abnormal. Will give Rocephin empirically with urine culture growing gram-negative bacilli, E. coli and is pansensitive Blood cultures 1 out of 2 grew coagulation negative staph not lugdunensis. Likely contaminant and will discontinue vancomycin Continue intravenous Rocephin will change to oral Keflex continue 5 more days. (3) Insomnia: (4) Panic disorder: H/o insomnia. Has tried Atarax in the past but made her more anxious, per records. Attempted to contact family for more information but unable to reach them at this time. Not taking any medications per external med rec No further medication was advised by the psychiatrist (5) ANDREY (obstructive sleep apnea): Mild ANDREY documented but not on CPAP. Contraindicated now in setting of acute encephalopathy and aspiration risk (6) Asthma: Not on any home inhalers. Duonebs PRN for SOB and wheezing Will give nebulized bronchodilators Will provide inhalers on discharge DVT Ppx: John fournier Code status: FULL PCP: Pam Dispo: Admitted to PCU. Discharge planning ordered. Discussed with the mother and she will be discharged today Admission and Anticipated Discharge Date Admission Date: May 27, 2020 Subjective 05/28/2020 The patient was seen and examined in telemetry unit She was admitted yesterday with acute confusion and mental status change following ingestion of bath salt She has been very aggressive, combative , harmful to herself and to others in telemetry unit She wanted to go home and sign out AMA She required soft restraints to calm her down including indications 05/29/2020 The patient was seen and examined in telemetry unit She is completely different person today and denies what happened yesterday She denies any complaints today Review of Systems Review of Systems: All systems reviewed and are unremarkable except as noted below Constitutional: + malaise Psychiatric: + anxiety; no irritability, no suicidal ideation and no panic attacks Physical Exam Physical Exam: Sitting on bed with anxiety and agitation Constitutional: well developed, well nourished, + intoxicated appearing and + obese; no acute distress Eyes: PERRL, conjunctivae normal, anicteric sclerae ENMT: external ear and nose normal, oropharynx normal Neck: trachea midline, no thyromegaly Respiratory: normal respiratory effort; no respiratory distress Auscultation: + diminished lung sounds and + wheezes (Bilateral wheezing mostly at the bases) Cardiovascular: Rate/Rhythm: regular rate and regular rhythm Heart Sounds: no murmur Gastrointestinal (Abdomen): Inspection/Auscultation: abdomen normal to inspection and normal bowel sounds; abdomen not distended Percussion/Palpation: abdomen soft; abdomen nontender Neurologic: moves all extremities Psychiatric: Orientation: alert and oriented x 3 Lymphatic: no cervical or axillary lymphadenopathy Results & Data Results & Data ([facility]) Vital Signs (Past 12 Hours) Vital Signs Temp Pulse Resp BP Pulse Ox 05/29/20 07:37 36.7 C 100 H 18 133/88 92 05/29/20 04:31 36.8 C 116 H 20 142/86 H 98 Laboratory Results Short CBC 05/29/20 Range/Units 06:11 WBC 10.69 (4.8-10.8) K/uL Hgb 13.8 (12.0-16.0) g/dL Hct 41.4 (37-47) % Plt Count 184 (130-400) K/uL BMP 05/29/20 06:11 Sodium 139 Potassium 3.9 Chloride 109 H Carbon Dioxide 25 BUN 9 Creatinine 0.90 Glucose 94 Calcium 8.7 Liver Function 05/29/20 Range/Units 06:11 Total Bilirubin 0.8 (0.2-1) mg/dl AST 14 L (15-37) U/L ALT 16 (12-78) U/L Alkaline Phosphatase 69 (45-117) U/L Albumin 3.1 L (3.4-5.0) gm/dl Medications Administered Current Inpatient Medications Acetaminophen (Acetaminophen 325 Mg Tab) 650 mg PO Q6H PRN PRN Reason: Pain Stop: 06/27/20 23:22 Last Admin: 05/29/20 06:38 Dose: 650 mg Documented by: Albuterol (Albuterol Hfa 8 Gm Inhaler) 2 puffs INH QID PRN; Protocol PRN Reason: Respiratory Distress Stop: 06/26/20 19:28 Folic Acid (Folic Acid 1 Mg Tab) 1 mg PO QAM [facility] Stop: 06/27/20 08:59 Last Admin: 05/29/20 08:04 Dose: 1 mg Documented by: Dextrose/Lactated Ringer's (D5w And Lactated Ringers) 1,000 mls @ 80 mls/hr IV .[id number] [facility] Stop: 06/27/20 01:29 Last Admin: 05/29/20 11:13 Dose: Not Given Documented by: Cefepime HCl 2,000 mg/ Syringe 20 mls @ 5 mls/min IV Q12H [facility] Stop: 06/07/20 00:00 Last Admin: 05/29/20 11:14 Dose: Not Given Documented by: Vancomycin HCl 1,250 mg/ (Sodium Chloride) 275 mls @ 200 mls/hr IV Q12H [facility]; Protocol Stop: 06/12/20 07:59 Last Infusion: 05/29/20 09:30 Dose: Infused Documented by: Ketorolac Tromethamine (Ketorolac 30 Mg/Ml Vial) 30 mg IV Q6H PRN PRN Reason: Pain Stop: 06/03/20 07:45 Last Admin: 05/29/20 07:57 Dose: 30 mg Documented by: Metoprolol Tartrate (Metoprolol Tartrate 1 Mg/Ml Vial) 2.5 mg IV Q6H PRN PRN Reason: HR >110 Stop: 06/26/20 17:49 Miscellaneous Information (Cefepime Consult Active) 1 ea N/A UD PRN PRN Reason: Consult Stop: 06/26/20 23:15 Miscellaneous Information (Vancomycin Consult Active) 1 ea N/A UD PRN PRN Reason: Consult Stop: 06/27/20 19:27 Olanzapine (Olanzapine 10 Mg/2.1 Ml Sdv) 10 mg IM Q8H PRN PRN Reason: Agitation Stop: 06/27/20 14:14 Last Admin: 05/28/20 14:33 Dose: 10 mg Documented by: Thiamine HCl ([facility] Hcl 100 Mg Tab) [facility] [place]: 06/27/20 08:59 Last Admin: 05/29/20 08:05 Dose: 100 mg Documented by:
[2020-05-29] MEDS ORDERED: cephALEXin 500 MG CAP PO SCH (13:00)
[2020-05-30] MEDS ORDERED: VANCOMYCIN TROUGH ONE (07:30)
--- NOTE | 2020-05-30 08:29 | Discharge Summary ---
Date of Service May 30, 2020 Admission HPI Per Admitting Provider This is a 24yo F with a PMH of insomnia, asthma and ANDREY not on CPAP who presents to ED with altered mental status following ingestion of bath salts yesterday evening, per background given to nurse by mom. There is initially a question of whether or not she ingested methamphetamine last night, but mom denies it. Was found to be altered at home by her mother, who called EMS and brought patient to the ED for further evaluation. Was seen by physician financial planning assistant overnight and was found to be tachycardic and tachypneic. Has required 6 mg of Ativan in total due to agitation. Initial leukocytosis of 15. Has been receiving IV fluids. UA abnormal with evidence of infection. Utox negative. Continues to have garbled speech and responds inappropriately to questions. We will be admitting for further evaluation and management. Unable to obtain ROS due to cognitive state. Admission Exam Per Admitting Provider Physical Exam: General Appearance: vitals as above,sitting up in bed, confused, intermittently agitated Head: normocephalic, atraumatic Eyes: normal inspection, dilated pupils minimally reactive to light, conjunctivae normal, anicteric sclerae ENT: external ear and nose normal, oropharynx normal Neck: normal visual inspection, trachea midline, no thyromegaly Respiratory: normal respiratory effort, lungs clear to auscultation, no wheeze, rales, rhonchi. No accessory muscle use Cardiovascular: tachycardic rate, regular rhythm, no murmur appreciated, normal peripheral pulses, no BLE edema. Vessels: no JVD Chest: normal inspection of chest Abdomen/GI: normal bowel sounds, soft, nontender, no hepatosplenomegaly Extremities/Musculoskeletal: no cyanosis or clubbing, extremities motor strength 5/5 Neurologic: PERRL, EOMI, accommodation nl, no face palsy, + dysarthria, CN's II-XI intact bilaterally and moves all extremities Psychiatric: disoriented, responding to verbal stimuli but not answering questions appropriately. Grasping items in the air, easily distracted during exam Skin: no rashes, normal color, warm/dry Principal Diagnosis Toxic encephalopathy due to bath salt ingestion, controlled asthma, ANDREY not on CPAP, UTI Discharge Exam Constitutional well developed, well nourished, + intoxicated appearing and + obese; no acute distress Eyes PERRL, conjunctivae normal, anicteric sclerae ENMT external ear and nose normal, oropharynx normal Neck trachea midline, no thyromegaly Respiratory normal respiratory effort; no respiratory distress Auscultation: + diminished lung sounds and + wheezes (Bilateral wheezing mostly at the bases) Cardiovascular Rate/Rhythm: regular rate and regular rhythm Heart Sounds: no murmur Gastrointestinal (Abdomen) Inspection/Auscultation: abdomen normal to inspection and normal bowel sounds; abdomen not distended Percussion/Palpation: abdomen soft; abdomen nontender Neurologic moves all extremities Psychiatric Orientation: alert and oriented x 3 Insight: + poor insight Judgement: + poor judgement Lymphatic no cervical or axillary lymphadenopathy Discharge Data Allergies Allergy/AdvReac Type Severity Reaction Status Date / Time cat dander Allergy Intermediate HIVES-SWELLING Verified 09/09/19 17:17 ITCHY WATERY EYES grass pollen Allergy Intermediate HIVES--SWELLING Verified 09/09/19 17:17 ITCHY WATERY EYES pollen extracts Allergy Intermediate HIVES--SWELLING Verified 09/09/19 17:17 ITCHY WATERY EYES. Consultations 05/27/20 17:12 ED Decision to Admit Stat 05/27/20 19:29 Consult Case Management - Discharge Planning Stat 05/28/20 11:40 Consult Psychiatry Routine Ordered Studies 05/27/20 16:10 CT head/brain wo con Stat Hospital Course (1) Toxic encephalopathy: This is a 24yo F with a PMH of insomnia, asthma and ANDREY not on CPAP who presents to ED with altered mental status following ingestion of bath salts yesterday evening. Discussed with the mother who mentioned that her daughter has been trying to kill herself by taking unidentified medications CT head without acute abnormalities. Utox negative She remains very aggressive, combative and seems to be injurious to herself and others She required intravenous Ativan and IM Zyprexa without much improvement of her condition Appreciate psychiatrist input and recommendation We will give Zyprexa 10 mg IM every 8 hourly as needed and stop Ativan She has been requiring soft restraints of the limbs to keep her in bed Requiring one-to-one sitter NPO for now, advance diet to full liquids as tolerated No more confusion Suicidal ideation has been ruled out Appreciate psychiatrist input and recommendation (2) UTI (urinary tract infection): UA abnormal. Will give Rocephin empirically with urine culture growing gram-negative bacilli, E. coli and is pansensitive Blood cultures 1 out of 2 grew coagulation negative staph not lugdunensis. Likely contaminant and will discontinue vancomycin Continue intravenous Rocephin will change to oral Keflex continue 5 more days. (3) Insomnia: (4) Panic disorder: H/o insomnia. Has tried Atarax in the past but made her more anxious, per records. Attempted to contact family for more information but unable to reach them at this time. Not taking any medications per external med rec No further medication was advised by the psychiatrist (5) ANDREY (obstructive sleep apnea): Mild ANDREY documented but not on CPAP. Contraindicated now in setting of acute encephalopathy and aspiration risk (6) Asthma: Not on any home inhalers. Duonebs PRN for SOB and wheezing Will give nebulized bronchodilators Will provide inhalers on discharge DVT Ppx: John fournier Code status: FULL PCP: Pam Dispo: Admitted to PCU. Discharge planning ordered. Discussed with the mother and she will be discharged today Total Time Total Time Spent Total Time Spent (In Minutes): 35 minutes Total Time Includes: Examination of the Patient, Discharge Planning, Medication Reconciliation and Communication With Other Providers Discharge Plan Discharge Items Patient Disposition: Home - Self-Care Reason For Visit: TOXIC ENCEPHALOPATHY Discharge Diagnosis: Toxic encephalopathy due to bath salt ingestion, controlled asthma, ANDREY not on CPAP, UTI Condition on Discharge: Good Activity: Resume your previous activity Non-emergency contact: Primary Care Provider Call non-emergency contact if: you have any medication questions and your symptoms worsen Follow-up/Referrals: [facility] [Outside] - 06/17/20 8:20 am (follow up appt with Loida Back (previously Lance)) Linn Hook PA-C [Primary Care Provider] - (Date & Time 06/03/2020 2:20 PM Provider Xena Orozco, Department [facility] ) Diet: Regular Addtl Attending Provider Instructions: Strongly advised avoid use of any substance Try to take some probiotics [id number] while you are on antibiotic Keep appointment with your outpatient psychiatric/psychologist Pending Studies at Discharge: No Stand-Alone Forms: My [employer], Smoking Cessation Medications and DC Order Prescriptions: New cephalexin 500 mg Capsule 500 mg PO TID 5 Days Qty: 15 RF: 0 Continued hydroxyzine pamoate 25 mg capsule 25 - 50 mg PO HS PRN (Reason: Insomnia) RF: 0 montelukast [Singulair] 10 mg Tablet 10 mg PO HS RF: 0 diclofenac sodium 50 mg tablet,delayed release (DR/EC) 50 mg PO BID PRN (Reason: Pain) RF: 0 Dulera 100-5 mcg/actuation Hfa Aerosol Inhaler 2 puff INHALATION BID RF: 0 albuterol sulfate [Ventolin HFA] 90 mcg/actuation Hfa Aerosol Inhaler 2 puff INHALATION QID PRN (Reason: Respiratory Distress) 30 Days Qty: 1 RF: 0 Discharge Orders: Discharge Order (Routine); Ordered 05/29/20 Ordered By: Vi Parsons Admission Data Admit Date/Time: 05/27/20 17:39 Attending Provider: Vi Parsons Admit Provider: Claude Mcclure Primary Care Provider: Linn Hook Other Providers: Vi Parsons ; Raina Dorantes Other Interventions: Discharge Summary Assessment (RN) Last Done: 05/29/20 13:14
[2020-06-05 00:11] LABS: Synthetic Cannabinoid Qual Ur NEGATIVE (Negative)
== END 2020-05-29 13:45 | disposition home or self-care (01) | DRG 917 ==
LOC: ED 04:15 → 2S 17:39 → SUATTDRO 17:39 → 2S 18:37